=== PATIENT | male | born 1990 | race Caucasian/White ===

== ENCOUNTER 2021-06-20 11:10 | Inpatient (IN) | payer MEDICAID ==
[~2021-06-20] VITALS: Ht 175.3 cm; Wt 73.5 kg
[2021-06-20] VITALS (19 sets, daily range): BP systolic 75–130; BP diastolic 43–85
--- NOTE | 2021-06-20 11:10 | NUR ---
PT BIBRA [address] C/O ALTERED AND ELEVATED HEART RATE 182. ADENOSINE 6 AND 12MG GIVEN BY EMS ACLS SPECIALIST. PT IS AAOX0, NOTED RESPIRATORY DISTRESS, HOOKED TO O2 VIA NB AT 15 LPM AND DIMENSION QUARRY SUPERVISOR, KEPT RESTED AND COMFORTABLE. WILL CONTINUE TO MONITOR.
--- NOTE | 2021-06-20 11:14 | NUR ---
SEEN AND EXAMINED BY .
--- NOTE | 2021-06-20 11:20 | NUR ---
IV LINE ESTABLISHED BLOOD DRAWN AND SENT TO LAB.
[2021-06-20] MEDS ORDERED: ACETAMINOPHEN 650 MG/SUPP.RECT RC ONE ×2 (11:29→11:30)
[2021-06-20] MEDS ORDERED: IV NS 0.9% 1,000 ML BAG IV ONE ×2 (11:30→13:30)
[2021-06-20] MEDS ORDERED: ROCURONIUM BROMIDE 100 MG/10 ML VIAL IV ONE (11:30)
[2021-06-20] MEDS ORDERED: ETOMIDATE 2 MG/ML VIAL IV ONE ×2 (11:30→14:22)
[2021-06-20] MEDS ORDERED: VANCOMYCIN 1 GM in IV D5W 250 ML IV ONE (11:30)
[2021-06-20] MEDS ORDERED: MEROPENEM 1 G in IV NS 0.9% 100 ML IV ONE (11:30)
--- NOTE | 2021-06-20 11:32 | NUR ---
COOLING MEASURES PROVIDED.
[2021-06-20 11:37] LABS: BASOPHILS % (AUTO) 0.2 % (0.0-2.0); EOSINOPHILS % (AUTO) 0.2 % (0.0-6.0); HEMATOCRIT 48 % (39-51); HEMOGLOBIN 16.5 g/dL (13.5-17.5); LYMPHOCYTES # (AUTO) 2.1 K/uL (0.8-4.8); LYMPHOCYTES % (AUTO) 12.9 % (20.0-44.0); MEAN CORPUSCULAR HGB CONC 34 g/dl (31.0-36.0); MEAN CORPUSCULAR VOLUME 89 fL (80-96); MONOCYTES # (AUTO) 0.8 K/uL (0.1-1.30); MONOCYTES % (AUTO) 4.7 % (2.0-12.0); NEUTROPHILS # (AUTO) 13.2 K/uL (1.8-8.9); PLATELET COUNT (AUTO) 491 K/uL (150-450); RED BLOOD CELL COUNT(AUTO) 5.39 MIL/uL (4.5-6.0); WHITE BLOOD COUNT (AUTO) 16.1 K/uL (4.3-11.0)
--- NOTE | 2021-06-20 11:38 | NUR ---
ETOMIDATE 20MG IVP AND CAS 60MG IVP GIVEN PER .
--- NOTE | 2021-06-20 11:38 | NUR ---
MOVE SHEET SUBMITTED
[2021-06-20 11:39] LABS: BILIRUBIN,URINE NEGATIVE (NEGATIVE); COLOR,URINE YELLOW (YELLOW); LEUKOCYTE ESTERASE ,URINE NEGATIVE (NEGATIVE); NITRITE, URINE NEGATIVE (NEGATIVE); PROTEIN,URINE 30 mg/dl (NEGATIVE); UGLUCOSE NEGATIVE (NEGATIVE); UROBILINOGEN,URINE 0.2 EU/dL (0.2)
[2021-06-20] MEDS ORDERED: PROPOFOL 100 ML ONE (11:40)
--- NOTE | 2021-06-20 11:40 | NUR ---
PT INTUBATED BY . ET SIZE 7.5 25 AT THE LIP. POSITIVE COLOR CHANGED.
--- NOTE | 2021-06-20 11:45 | NUR ---
RIDE ASSEMBLY SUPERVISOR AT BEDSIDE FOR XRAY.
--- NOTE | 2021-06-20 11:59 | NUR ---
CALLED FOR ICU BED.
[2021-06-20 12:02] LABS: THYROID STIMULATING HORMONE 2.524 uIU/mL (0.358-3.74)
[2021-06-20 12:17] LABS: RBC,URINE 0-2 /HPF (0-2)
--- NOTE | 2021-06-20 12:17 | NUR ---
covid 19 swab collected and sent to lab.
[2021-06-20 12:21] LABS: BACTERIA,URINE None seen /HPF (None Seen); URINE AMORPHOUS PHOSPHATES Few /HPF (None Seen)
[2021-06-20] MEDS ORDERED: LORAZEPAM INJ 2 MG/ML VIAL ONE ×2 (12:22→12:51)
[2021-06-20] MEDS ORDERED: PROPOFOL 100 ML IV PRN (12:30)
[2021-06-20 12:44] LABS: LYMPHOCYTES % (MANUAL) 1 % (16-48); MONOCYTES % (MANUAL) 4 % (0-11.0); NEUTROPHILS % (MANUAL) 82 (42-76); REACTIVE LYMPHOCYTES 13 % (0-0)
[2021-06-20] MEDS ORDERED: LORAZEPAM INJ 2 MG/ML VIAL IV ONE ×2 (13:00→14:00)
[2021-06-20 13:23] LABS: ALANINE AMINOTRANSFERASE 32 U/L (12-78); ALBUMIN 5.6 g/dL (3.4-5.0); ALKALINE PHOSPHATASE 116 U/L (46-116); ASPARTATE AMINOTRANSFERASE 85 U/L (15-37); BILIRUBIN,DIRECT 0.2 mg/dL (0.0-0.2); BILIRUBIN,TOTAL 0.8 mg/dL (0.2-1.0); CALCIUM, SERUM 10.1 mg/dL (8.5-10.1); CARBON DIOXIDE 17 mmol/L (21-32); CHLORIDE 105 mmol/L (98-107); CREATININE 3.2 mg/dL (0.6-1.3); GLUCOSE 139 mg/dL (74-106); POTASSIUM 5.6 mmol/L (3.5-5.1); SODIUM SERUM 148 mmol/L (136-145); TOTAL PROTEIN, SERUM 9.6 g/dL (6.4-8.2); UREA NITROGEN, BLOOD 22 mg/dL (7-18)
--- NOTE | 2021-06-20 13:31 | NUR ---
CALLED [facility] --- DR PAK IS ON THE PHONE WITH DR RICHARD.
--- NOTE | 2021-06-20 13:53 | NUR ---
REPORT GIVEN TO STEVIE MCCLURE FOR YUNIOR.
--- NOTE | 2021-06-20 14:19 | NUR ---
RN/ICU-ADMITTED THIS 39 Y/O HOMELESS MALE FROM ED BY JONATHON PER ACLS PROTOCOL. ROUTINE ICU ADMISSION CARE INITIATED. NURSING FOCUS:ALTERED RESPIRATORY STATUS R/T DIAGNOSIS:RESPIRATORY FAILURE.PT. MECHANICALLY INTUBATED W/ A #7.5 ETT,AT ABOUT 25CM AT THE LIP. W/ INITIAL SETTINGS:AC-20, VT-450, FIO2-60%, PEEP +5, SATS.-96%. SEDATED ON DIPRIVAN DRIP AT 30 MCG/KG/MIN, WILL TITRATE PER PROTOCOL.FEBRILE 101/F AXILLARY,CONTINUOUS COOLING MEASURES DONE. PT. IS A FULL CODE. W/ MULTI SKIN ISSUES NOTED. WILL CONSULT TRACTOR ENGINE MECHANIC.
[2021-06-20] MEDS: PROPOFOL 100 ML IV PRN ×2 (14:20→16:12)
[2021-06-20] MEDS ORDERED: ROCURONIUM BROMIDE 50 MG/5 ML IV ONE (14:22)
[2021-06-20 14:53] LABS: ABG BASE EXCESS -8.3 mmol/L; ABG OXYGEN SATURATION 98.9 % (92.0-98.5); ABG PCO2 31.9 mmHg (35.0-45.0); ABG PH 7.328 (7.350-7.450); ABG PO2 288.4 mmHg (75.0-100.0); AaDO2 392.7 mmHg; COHb 0.3 % (0.5-1.5); MetHb 0.9 % (0.0-1.5); O2Hb 97.7 % (94.0-97.0); PEEP,BG 5 cm H2O; SITE, ABG Right Radial; VT, ABG 450 mL
--- NOTE | 2021-06-20 15:31 | NUR ---
RN/NAZ- KETAN FROM XRAY DEPT JUST CALLED, TO FOLLOW UP ON LP PROCEDURE LATOSHA. IN RADIOLOGY, MADE AWARE, THAT PT. IS INTUBATED, HOMELESS, NO FAMILY. WILL NOTIFY PRIMARY MD REGARDING THE CONSENT.
[2021-06-20] MEDS: IV NS 0.9% 1,000 ML IV PRN (15:44)
[2021-06-20] MEDS ORDERED: MAG HYDROX/AL HYDROX/SIMETH 30 ML UDC PO PRN (16:00)
[2021-06-20] MEDS ORDERED: MAGNESIUM HYDROXIDE 30 ML UDC PO PRN (16:00)
[2021-06-20 17:18] LABS: CREATINE KINASE, TOTAL 12015 U/L (39-308); TRIGLYCERIDES 87 mg/dL (30-150)
--- NOTE | 2021-06-20 17:26 | NUR ---
PT. 39 Y OLD MALE REC. IN ER BED #8 X3 RT AT THE BEDSIDE. PT. ORALLY INTUBATED AT [address] RICHARD FOR INTUBATION ETT # 7.0 25 CM LIP LINE GOOD COLOR EXCHANGED VIA CAPNOGRAPHY B/S BILATERALLY RALES AND SUCTIONED FOR MINIMAL AMT WHITE/YELLOW SECRETIONS, ALARMS ARE SET AND FUNCTIONAL, EQUAL CHEST RISE NOTED. AMBU BAG AT THE BEDSIDE, VENT PLUGGED INTO RED OUTLET. T/O DAY PT. TOOK TO CT AND BACK TO ER SAFELY, THAN TRANSFERRED TO ICU T/O DAY ROOM 259. PT. REMAIN ON VENT AND REPORT WILL PASS TO PM SHIFT. Addendum: 06/20/21 at 1733 by ROSA COOMBS RT Amended: Links added.
[2021-06-20] MEDS: PIPERACILLIN /TAZOBACTAM 3.375 G in IV D5W 50 ML IV SCH (17:46)
--- NOTE | 2021-06-20 17:50 | NUR ---
RN/ICU-TROPONIN RESULT IN 35.122, RELAYED TO DR. PAK BY PHONE W/ RBTO TO CANCEL LP LATOSHA. AND START PT. ON HEPARIN DRIP ACS PROTOCOL.
[2021-06-20] MEDS ORDERED: HEPARIN INFUSION/D5W 500 ML IV PRN (18:00)
[2021-06-20] MEDS ORDERED: HEPARIN SODIUM, PORCINE 5000 UNITS/1 ML VIAL IV ONE (18:30)
--- NOTE | 2021-06-20 19:15 | NUR ---
RN/ICU-HEPARIN DRIP STARTED AT 1110 UNITS/HR PER ACS PROTOCOL. WILL CHECK PTT IN 6HRS (0100)PER PROTOCOL.
--- NOTE | 2021-06-20 20:00 | NUR ---
RN/ICU-HIGHLY FEBRILE. T-102.8/F, WILL MEDICATE W/ TYLENOL 650MG/NGT POST NGT INSERTION PER MD ORDER. WILL CONTINUE COOLING MEASURES.WILL REASSESS FOR PRN EFFECTIVENESS.
[2021-06-20] MEDS: ACETAMINOPHEN 325 MG TABLET PO PRN (20:44)
--- NOTE | 2021-06-20 21:00 | NUR ---
RN/ICU- TEMPT. RE CHECKED-102/F, CONTINUOUS COOLING MEASURES DONE
[2021-06-21] VITALS (45 sets, daily range): BP systolic 63–118; BP diastolic 42–75
--- NOTE | 2021-06-21 | NUR ---
RN/ICU-LATEST TEMPT-100/F, CONTINUOUS COOLING MEASURES DONE.
[2021-06-21] MEDS: PIPERACILLIN /TAZOBACTAM 3.375 G in IV D5W 50 ML IV SCH ×3 (00:25→11:08)
[2021-06-21] MEDS: PROPOFOL 100 ML IV PRN ×3 (02:02→20:31)
[2021-06-21] MEDS: IV NS 0.9% 1,000 ML IV PRN (02:18)
--- NOTE | 2021-06-21 03:00 | NUR ---
RN/ICU-RESULT OF PTT IN >170, HEPARIN DRIP PLACED ON HOLD, ACNP LYUDMILA NOTIFIED W/ RBTO TO FOLLOW PROTOCOL AND DO STAT INR/PTT
[2021-06-21 04:01] LABS: HEMATOCRIT 46 % (39-51); HEMOGLOBIN 15.6 g/dL (13.5-17.5); LYMPHOCYTES # (AUTO) 0.8 K/uL (0.8-4.8); LYMPHOCYTES % (AUTO) 6.3 % (20.0-44.0); MEAN CORPUSCULAR HGB CONC 34 g/dl (31.0-36.0); MEAN CORPUSCULAR VOLUME 91 fL (80-96); MONOCYTES # (AUTO) 0.6 K/uL (0.1-1.30); MONOCYTES % (AUTO) 4.9 % (2.0-12.0); NEUTROPHILS # (AUTO) 11.4 K/uL (1.8-8.9); NEUTROPHILS % (AUTO) 88.8 % (43.0-81.0); RED BLOOD CELL COUNT(AUTO) 5.12 MIL/uL (4.5-6.0); WHITE BLOOD COUNT (AUTO) 12.9 K/uL (4.3-11.0)
[2021-06-21 04:15] LABS: CALCIUM, SERUM 7.2 mg/dL (8.5-10.1); CREATININE 3.9 mg/dL (0.6-1.3); MAGNESIUM 2.1 mg/dL (1.8-2.4); PHOSPHORUS 2.6 mg/dL (2.5-4.9); POTASSIUM 3.8 mmol/L (3.5-5.1)
--- NOTE | 2021-06-21 06:00 | NUR ---
RN/ICU- RESULT OF PTT AND PLATELET CT. IN RELAYED TO SAMP LYUDMILA BY PHONE, WILL ORDER ANOTHER STAT PTT/PLATELET.
[2021-06-21 06:04] LABS: PLATELET COUNT (AUTO) 41 K/uL (150-450)
[2021-06-21] MEDS ORDERED: PHYTONADIONE INJ 10 MG/1 ML AMPUL SQ SCH (07:00)
--- NOTE | 2021-06-21 07:30 | NUR ---
TRANSITION MGR NOTE SHIFT ASSESSMENT COMPLETED. PT INTUBATED ON THE VENT AC MODE, FIO2 60%, SAT 100%, VSS, PT SEDATED WITH PROPOFOL AT 20MCG / HR. NG TUBE CLAMPED. NO FEVER. RIGHT PERIPHERAL IV BLEEDING. REYNOSO CATHETER IN PLACED WITH DARK MINIMAL OUTPUT. REDNESS ON SACRUM AND FOAM APPLIED. LATERAL FEET WOUND COVERED WITH DRESSING. HEPARIN DRIP DC. LABS REVIEWED AND MD NOTIFIED. SUCTION PROVIDED NEEDED. BLOODY SECRETION NOTED. REPOSITIONED PT PER PROTOCOL.
[2021-06-21 07:47] LABS: ABG BASE EXCESS -12.6 mmol/L; ABG OXYGEN SATURATION 99.1 % (92.0-98.5); ABG PCO2 30.4 mmHg (35.0-45.0); ABG PH 7.251 (7.350-7.450); ABG PO2 191.5 mmHg (75.0-100.0); AaDO2 202.9 mmHg; COHb 0.2 % (0.5-1.5); MetHb 0.5 % (0.0-1.5); O2Hb 98.4 % (94.0-97.0); SITE, ABG Right Radial
--- NOTE | 2021-06-21 07:48 | NUR ---
RT PATIENT REC'D ORALLY INTUBATED ON [facility] VENT WITH ORDERED SETTINGS EMMA WELL. ETT SECURE AND IN PROPER POSITION. AIRWAY SUCTIONED AND PATENT. PATIENT APPEARS COMFORTABLE AT THIS TIME. VENT ALARMS CHECKED + AUDIBLE. PABLOU BAG AT [facility]. Addendum: 06/21/21 at 1742 by SISSY ARRIAGA RT Amended: Links added.
[2021-06-21 07:55] LABS: D-DIMER 34.56 mg/L(FEU (0.17-0.50)
--- NOTE | 2021-06-21 09:13 | NUR ---
WOUND CARE CONSULT: REVIEWED CHART, NURSING DOCUMENTATION AND PHOTOS WHICH INDICATE INTACT DEEP TISSUE INJURY TO SACRUM/BUTTOCKS AREA AND FOOT WOUNDS, PRESENT ON ADMISSION. RECOMMEND DPM CONSULT. DR JOHANSEN NOTIFIED OF CONSULT REQUEST. RECOMMENDATIONS MADE FOR SKIN PROTECTION. DISCUSSED WITH NURSING STAFF. CURRENT ISA SCORE IS 13. MD IN AGREEMENT WITH PLAN OF CARE.
[2021-06-21] MEDS: IV NS 0.9% 1,000 ML IV SCH ×3 (09:50→17:10)
--- NOTE | 2021-06-21 10:00 | NUR ---
MINES INSPECTOR NOTE PICC INSERTED ON RIGHT UPPER ARM. XRAY ORDERED TO CONFIRM THE PLACEMENT. OK TO USE.
[2021-06-21 10:07] LABS: BAND % (MANUAL) 1 % (0.0-5.0); LYMPHOCYTES % (MANUAL) 5 % (16-48); MONOCYTES % (MANUAL) 2 % (0-11.0); NEUTROPHILS % (MANUAL) 92 (42-76)
[2021-06-21] MEDS: VANCOMYCIN 1 GM in IV D5W 250 ML IV SCH (11:08)
--- NOTE | 2021-06-21 11:50 | NUR ---
NEONATAL DOCTOR NOTE SEDATION VACATION PROVIDED. PT OPENED HIS EYE AND FOLLOWED COMMANDS. LITTLE AGITATED. HEART RATE AND RESPIRATION INCREASED. PT BACK ON PROPOFOL. TROP LEVEL 99.1. MD BOSTON NOTIFIED. DPM SEE PATIENT AND ORDER RECEIVED. CONTINUE MONITORING .
--- NOTE | 2021-06-21 12:10 | NUR ---
SS consult for homelessness, responsible democrat received. Per charge nurse, modesto the pt. is not interviewable at this time as he is sedated and on vent at the moment. SW will follow up as needed.
[2021-06-21] MEDS: MINERAL OIL/PETROLATUM,WHITE 120 GM JAR TP PRN (15:30)
[2021-06-21] MEDS: Z GUARD REMEDY 2 OZ OINT TP PRN (15:32)
[2021-06-21] MEDS: CEFEPIME 2 GM in IV D5W 100 ML IV SCH (17:14)
[2021-06-21] MEDS: METRONIDAZOLE 500MG/ NS 100ML 500 MG in PREMIX 1 EA IV SCH ×2 (17:14→23:48)
--- NOTE | 2021-06-21 18:00 | NUR ---
PSYCHOPAEDIC NURSE NOTED PM CARE PROVIDED. WOUND DRESSING APPLIED PER ODER. DUE MEDICATION GIVEN PER ORDER. PT MORE AGITATED AND HEART RATE TACHY. INCREASED PROPOFOL RATE. WILL KEEP MONITORING.
--- NOTE | 2021-06-21 19:05 | NUR ---
RECEIVED PT ON BED SEDATED, ON ETT 7.04/18 SETTING MD ORDER FIO2 40% SPO2 99% NO SIGN OF RESPIRATORY DISTRESS, BEDSIDE MONITOR READS SINUS TACHY 100'S, HAVE FERNANDA PICC WITH ONGOING PROPOFOL 35 MCG/KG/MIN AND NS @ 250ML/HR INFUSING WELL, HAVE BILATERAL WRIST RESTRAINTS CIRCULATION WILL BE CHECKED REGULARLY, HAVE REYNOSO CATHETER WITH MINIMAL MAKI URINE OUTPUT, BED ON LOWEST POSITION AND LOCKED SIDE RAILS UP X2 WILL CONT TO MONITOR
[2021-06-21] MEDS: Sodium Bicarbonate 50 MEQ in IV D5W 1,000 ML IV PRN (20:31)
[2021-06-22] VITALS (58 sets, daily range): BP systolic 103–133; BP diastolic 30–82
--- NOTE | 2021-06-22 01:37 | NUR ---
PT ON BED STILL SEDATED ON ETT/VENT SETTING PER MD FIO2 40% NO SIGN OF ANY DISTRESS, STILL ON BILATERAL WRIST SOFT RESTRAINTS CIRCULATION CHECKED REGULARLY WILL CONT TO MONITOR
[2021-06-22] MEDS ORDERED: SODIUM BICARBONATE SYR 50 MEQ/50 ML DISP.SYRIN ONE (02:45)
[2021-06-22] MEDS: PROPOFOL 100 ML IV PRN ×3 (03:10→20:31)
[2021-06-22] MEDS: Sodium Bicarbonate 50 MEQ in IV D5W 1,000 ML IV PRN (03:30)
[2021-06-22] MEDS: METRONIDAZOLE 500MG/ NS 100ML 500 MG in PREMIX 1 EA IV SCH ×3 (04:08→21:10)
[2021-06-22 04:42] LABS: BASOPHILS % (AUTO) 0.2 % (0.0-2.0); HEMATOCRIT 38 % (39-51); HEMOGLOBIN 13.3 g/dL (13.5-17.5); LYMPHOCYTES # (AUTO) 0.8 K/uL (0.8-4.8); LYMPHOCYTES % (AUTO) 5.3 % (20.0-44.0); MEAN CORPUSCULAR HGB CONC 35 g/dl (31.0-36.0); MEAN CORPUSCULAR VOLUME 88 fL (80-96); MONOCYTES # (AUTO) 0.6 K/uL (0.1-1.30); MONOCYTES % (AUTO) 3.9 % (2.0-12.0); NEUTROPHILS # (AUTO) 14.4 K/uL (1.8-8.9); NEUTROPHILS % (AUTO) 90.6 % (43.0-81.0); RED BLOOD CELL COUNT(AUTO) 4.33 MIL/uL (4.5-6.0); WHITE BLOOD COUNT (AUTO) 15.9 K/uL (4.3-11.0)
[2021-06-22 04:50] LABS: CALCIUM, SERUM 6.1 mg/dL (8.5-10.1); CREATININE 7.3 mg/dL (0.6-1.3); PLATELET COUNT (AUTO) 34 K/uL (150-450); POTASSIUM 4.2 mmol/L (3.5-5.1)
[2021-06-22 05:28] LABS: BAND % (MANUAL) 6 % (0.0-5.0); NEUTROPHILS % (MANUAL) 86 (42-76)
[2021-06-22 05:29] LABS: LYMPHOCYTES % (MANUAL) 5 % (16-48); MONOCYTES % (MANUAL) 2 % (0-11.0)
[2021-06-22 05:48] LABS: D-DIMER 35.08 mg/L(FEU (0.17-0.50)
--- NOTE | 2021-06-22 06:50 | NUR ---
PT ON BED STILL SEDATED, ON ETT/VENT SETTING PER MD FIO2 40% SPO2 100% NO SIGN OF RESPIRATORY DISTRESS NOTED, BEDSIDE MONITOR READS SINUS RHYTHM 90'S BED, STILL ON PROPOFOL 30 MCG/KG/MIN AND NaHCO3 + 1000ML D5W @ 150 ML/HR VIA FERNANDA PICC LINE INFUSING WELL, REYNOSO CATHETER DRAINING VERY MINIMAL DARK YELLOW URINE @ 70ML FOR 12HRS, STILL ON BILATERAL WRIST SOFT RESTRAINTS CIRCULATION WAS CHECKED, BED ON LOWEST POSITION AND LOCKED SIDE RAILS UP X2 WILL ENDORSED TO AM SHIFT NURSE
--- NOTE | 2021-06-22 07:40 | NUR ---
ICU/RN PT IS INTUBATED ON THE VENT ,AC MODE,FIO2-40%.SAT O2-100%.SEDATED ON DIPRIVAN.V/S STABLE,AFEBRILE.NO PAIN REPORTED AT THIS TIME.NPO.NG TUBE CLAMPED.RIGHT UPPER ARM PICC LINE,ON BICARB DRIP.F/C DRAINING WITH MINIMAL AMOUNT MUDDY DARK URINE. SUCTION PROVIDED.LABS REVIEW.MD AWARE.BILATERAL HEELS WOUNDS COVERED WITH DRESSING
[2021-06-22 08:57] LABS: ABG BASE EXCESS -11.5 mmol/L; ABG OXYGEN SATURATION 98.9 % (92.0-98.5); ABG PCO2 28.8 mmHg (35.0-45.0); ABG PO2 162.1 mmHg (75.0-100.0); COHb 0.3 % (0.5-1.5); MetHb 0.3 % (0.0-1.5); O2Hb 98.3 % (94.0-97.0); SITE, ABG Left Radial; VENT MODE, BG AC 20 450 40%
--- NOTE | 2021-06-22 09:00 | NUR ---
ICU/RN DUE MEDS ARE GIVEN ORDERED.
[2021-06-22] MEDS ORDERED: ACETAMINOPHEN 325 MG TABLET PO ONE (10:00)
[2021-06-22] MEDS ORDERED: diphenhydrAMINE HCL 50 MG/ML VIAL IV ONE ×2 (10:00→15:00)
[2021-06-22 10:07] LABS: *ANA ANTI-CENTROMERE B AB <0.2 AI (0.0-0.9); *ANA ANTI-DNA(DS) AB, QN <1 IU/mL (0-9); *ANA ANTI-JO-1 <0.2 AI (0.0-0.9); *ANA ANTICHROMATIN ANTIBODY <0.2 AI (0.0-0.9); *ANA RNP ANTIBODIES <0.2 AI (0.0-0.9); *ANA SJOGREN'S ANTI-SS-A <0.2 AI (0.0-0.9); *ANA SJOGREN'S ANTI-SS-B <0.2 AI (0.0-0.9); *ANAANTI-SCLERODERMA-70 AB <0.2 AI (0.0-0.9); *ANASMITH AB <0.2 AI (0.0-0.9)
[2021-06-22 10:31] LABS: ALBUMIN 2.5 g/dL (3.4-5.0)
--- NOTE | 2021-06-22 10:34 | NUR ---
SS Note: SW spoke to the maintenance shop technician to determine if the pt. has any belonging that may be able to help identify this pt. However, tech stated that the pt.'s only belognigns are : Belt, pants and shoes. No identifiication was found. SW still unable to identify pt. at this time. SW will follow up as needed and interview pt. when they are no longer sedated.
[2021-06-22] MEDS: Sodium Bicarbonate 50 MEQ in IV D5W 1,000 ML IV SCH ×2 (11:53→18:36)
[2021-06-22] MEDS: VANCOMYCIN 1 GM in IV D5W 250 ML IV SCH (12:00)
[2021-06-22] MEDS: NEPRO 1,000 ML BOTTLE GT PRN (12:06)
[2021-06-22 13:34] LABS: ALBUMIN 1.8 g/dL (3.4-5.0); BILIRUBIN,DIRECT 1.2 mg/dL (0.0-0.2); BILIRUBIN,TOTAL 2.1 mg/dL (0.2-1.0); TOTAL PROTEIN, SERUM 3.5 g/dL (6.4-8.2)
[2021-06-22] MEDS ORDERED: VANCOMYCIN 500 MG in IV D5W 100 ML IV PRN (14:30)
[2021-06-22] MEDS ORDERED: PHYTONADIONE INJ 10 MG/1 ML AMPUL SQ ONE (15:00)
[2021-06-22] MEDS: CEFEPIME 2 GM in IV D5W 100 ML IV SCH (15:03)
--- NOTE | 2021-06-22 18:00 | NUR ---
ICU/RN HEW HD CATH PLACED ORDERED. 2 UNITS OF CRYOPRECIPITATE IV GIVEN ORDERED.T-99.2 DUE MEDS ARE GIVEN .PM CARE PROVIDED.WOUND DRESSING DONE ORDERED.REPOSITION FOR COMFORT.CONTINUE MONITORING.
--- NOTE | 2021-06-22 19:56 | NUR ---
TRANSFUSION OF FFP STARTED WITH DIALYSIS, V/S CHECKED AND RECORDED NO BLOOD TRANSFUSION REACTION NOTED
--- NOTE | 2021-06-22 20:12 | NUR ---
2ND UNIT OF FFP GIVEN TO DIALYSIS NURSE TO TRANSFUSED, TRANSFUSION VERIFICATION DONE WITH OTHER NURSE, V/S CHECKED AND RECORDED, WILL CONT TO MONITOR
--- NOTE | 2021-06-22 20:20 | NUR ---
Received patient intubated 7.5 ett secured at 25cm at the lip. No sob noted. Patient tolerating vent settings. Sx'd small amt of white secretions. Vent alarms set and audible. Ett secured, cuff checked. Continue to monitor. Addendum: 06/22/21 at 2021 by CHACE MACKAY RT Amended: Links added.
--- NOTE | 2021-06-22 20:55 | NUR ---
VANCO DOSE PRN HD NON ADMIN VANCO TROUGH 21 CONFIRM IT TO PHARMACIST SHERON
[2021-06-22] MEDS ORDERED: VANCOMYCIN 0.75 GM in IV D5W 250 ML IV SCH (21:00)
--- NOTE | 2021-06-22 21:10 | NUR ---
PT COMPLETED HD WITH 1L OUT, TOLERATING WELL, V/S CHECKED AND RECORDED, PT STILL SEDATED ON ETT/VENT SETTING PER MD WILL CONT TO MONITOR
[2021-06-23] VITALS (38 sets, daily range): BP systolic 123–138; BP diastolic 62–85
[2021-06-23] MEDS: Sodium Bicarbonate 50 MEQ in IV D5W 1,000 ML IV SCH (01:03)
--- NOTE | 2021-06-23 03:10 | NUR ---
PT ON BED SEDATED, STILL ON ETT/VENT SETTING ORDER FIO2 40% SPO2 99% NO SIGN OF RESPIRATORY DISTRESS STILL ON SINUS RHYTHM ON BEDSIDE MONITOR CURRENTLY ON PROPOFOL 15 MCG/KG/MIN AND NaHCO3 50 MEQ+D5W 1L INFUSING WELL FERNANDA PICC, BED ON LOWEST POSITION AND LOCKED SIDE RAILS UP X2 WILL CONT TO MONITOR
[2021-06-23] MEDS: METRONIDAZOLE 500MG/ NS 100ML 500 MG in PREMIX 1 EA IV SCH ×3 (04:18→20:31)
[2021-06-23] MEDS: Z GUARD REMEDY 2 OZ OINT TP PRN (04:19)
[2021-06-23] MEDS: MINERAL OIL/PETROLATUM,WHITE 120 GM JAR TP PRN (04:20)
[2021-06-23 05:28] LABS: BASOPHILS % (AUTO) 0.3 % (0.0-2.0); HEMATOCRIT 33 % (39-51); HEMOGLOBIN 11.8 g/dL (13.5-17.5); LYMPHOCYTES # (AUTO) 0.7 K/uL (0.8-4.8); LYMPHOCYTES % (AUTO) 7.2 % (20.0-44.0); MEAN CORPUSCULAR HGB CONC 36 g/dl (31.0-36.0); MEAN CORPUSCULAR VOLUME 86 fL (80-96); MONOCYTES # (AUTO) 0.4 K/uL (0.1-1.30); MONOCYTES % (AUTO) 4.4 % (2.0-12.0); NEUTROPHILS # (AUTO) 8.6 K/uL (1.8-8.9); NEUTROPHILS % (AUTO) 88.1 % (43.0-81.0); RED BLOOD CELL COUNT(AUTO) 3.81 MIL/uL (4.5-6.0); WHITE BLOOD COUNT (AUTO) 9.8 K/uL (4.3-11.0)
[2021-06-23 05:30] LABS: CALCIUM, SERUM 6.4 mg/dL (8.5-10.1); CREATININE 6.9 mg/dL (0.6-1.3)
[2021-06-23 05:34] LABS: PLATELET COUNT (AUTO) 27 K/uL (150-450)
[2021-06-23 05:41] LABS: POTASSIUM 2.6 mmol/L (3.5-5.1)
--- NOTE | 2021-06-23 06:00 | NUR ---
REPORTED TO JITENDRA CRITICAL VALUE OF PLATELET 27 AND K+2.6 WITH ORDERS MADE AND CARRIED OUT
[2021-06-23 06:06] LABS: BAND % (MANUAL) 26 % (0.0-5.0); BASOPHILS % (MANUAL) 0 % (0.0-2.0); EOSINOPHILS % (MANUAL) 0 % (0-4); LYMPHOCYTES % (MANUAL) 5 % (16-48); METAMYELOCYTES % 5 % (0-0); MONOCYTES % (MANUAL) 4 % (0-11.0); NEUTROPHILS % (MANUAL) 60 (42-76)
[2021-06-23] MEDS: POTASSIUM CL. PREMIX PERIPHER. 50 ML IV SCH ×2 (06:29→07:31)
[2021-06-23] MEDS: IV LR 1000 ML 1,000 ML IV PRN ×2 (07:31→20:30)
[2021-06-23] MEDS: POTASSIUM CHLORIDE 20 MEQ POWDER PACKET GT SCH (08:18)
[2021-06-23] MEDS: ONDANSETRON HCL/PF 4 MG/2 ML VIAL IVP PRN ×2 (09:06→16:18)
--- NOTE | 2021-06-23 09:15 | NUR ---
REPORTED TO DR. BOSTON THE CK MB 71.4 WITH NO NEW ORDER
--- NOTE | 2021-06-23 09:30 | NUR ---
PROPOFOL OFF @ 0830 FOR SEDATION VACATION, THIS TIME PT IS OPENING HIS EYES BUT NOT TRACKING OR FOLLOWING ANY COMMANDS NO RESPITAORY DISTRESS NOTED, SEEN BY DR. MORRELL WITH ORDER TO HOLD SEDATION FOR NOW, NOTED AND CARRIED OUT WILL CONT TO MONITOR
[2021-06-23 10:20] LABS: D-DIMER 13.36 mg/L(FEU (0.17-0.50)
--- NOTE | 2021-06-23 11:00 | NUR ---
RESTARTED PROPOFOL TITRATE PER PROTOCOL BECAUSE PT BECOME AGITATED AND TRYING TO REMOVED HIS ETT AND BECOME TACHYPNIEC, PT IS ABLE TO KOVE HANDS AND FEET BUT CANNOT SQUISH HAND RIGHT UPPER AND LOWER EXTREMITIES MORE STRONG THAT LEFT EXTREMITIES, INFORM HOPSITALIST AND PULMO ABOUT THE RESTART OF SEDATION CHARGE NURSE ALSO AWARE
[2021-06-23] MEDS: PROPOFOL 100 ML IV PRN ×2 (11:01→18:12)
[2021-06-23 11:12] LABS: ALBUMIN 2.4 g/dL (3.4-5.0); BILIRUBIN,TOTAL 5.9 mg/dL (0.2-1.0); CALCIUM, SERUM 6.3 mg/dL (8.5-10.1); CREATININE 6.9 mg/dL (0.6-1.3); TOTAL PROTEIN, SERUM 4.5 g/dL (6.4-8.2)
[2021-06-23 11:42] LABS: POTASSIUM 2.6 mmol/L (3.5-5.1)
--- NOTE | 2021-06-23 14:45 | NUR ---
RN/ICU-RECEIVED PT.FROM [facility] KELSEA RUIZ. PT. INTUBATED ON AC MODE, FIO2 -40%. SATS.-100%. ON DIPRIVAN DRIP AT 20MCG/KG/MIN. W/ SAS OF 3.NO BROWER. WITH RODRIGO. SOFT WRIST RESTRAINTS ON PER PROTOCOL. EKG SR BP WNL. AFEBRILE. NO S/S OF PAIN OR DISTRESS.
--- NOTE | 2021-06-23 15:15 | NUR ---
RN/ICU-COUNTER DISH CARRIER EDDIE JUST CALLED, GETTING AN UPDATE ON PT, STATUS. PT. REMAINS INTUBATED AND SEDATED W/ DIPRIVAN AT 20 MCG/KG/MIN. WILL CONTINUE TO MONITOR PT. CLOSELY PER PROTOCOL.
--- NOTE | 2021-06-23 15:15 | NUR ---
SS Note : SW called & spoke to the pt.'s nurse, Katalina regarding pt.'s level of consciousness. Katalina stated that the pt. is still intubated and sedated. Pt. cannot be interviewed at this time. SW will continue to follow up as needed. Pt. unable to be identified at this time.
--- NOTE | 2021-06-23 16:10 | NUR ---
RN/ICU- PT. VOMITED MODERATE AMOUNT OF BROWNISH GI CONTENTS. TUBE FEEDS HELD FOR NOW. WILL REFER TO MD HAT LACER FOR ORDERS.WILL MEDICATE W/ ZOFRAN 4MGS SIVP AND WILL REASSESS FOR PRN EFFECTIVENESS.
--- NOTE | 2021-06-23 16:12 | NUR ---
RN/ICU-DR. LISA HERE TO SEE PT. UPDATE GIVEN TO SAME, W/ ORDER, NOTED.
[2021-06-23] MEDS: CEFEPIME 2 GM in IV D5W 100 ML IV SCH (16:19)
--- NOTE | 2021-06-23 18:00 | NUR ---
RN/ICU- SPOKE TO THANH RAMIREZ REGARDING PT. EMESIS AND TUBE FEEDS, W/ RBTO TO HOLD TUBE FEEDS FOR NOW AND START PT. ON REGLAN 5 MG PER GTUBE.
[2021-06-23] MEDS: NEPRO 1,000 ML BOTTLE GT PRN (18:18)
--- NOTE | 2021-06-23 19:00 | NUR ---
RN/ICU- PT. VENT ALARMING, UPON ENTRY TO PT. ROOM, NOTED SELF EXTUBATED, HOLDING UNTO THE ETT SUCTION TUBING., IN SPITE OF RODRIGO. WRIST RESTRAINTS. PT. SATS-93%, VOMITED MODERATE AMOUNT OF BROWNISH GI CONTENTS IMMEDIATELY STARTED BAGGING PT. W/ MASK, NGT HOOKED UP TO LOW INTERMITTENT SUCTION, OBTAINED MODERATE AMOUNT OF SAME BROWNISH GI CONTENTS. RR-30'S, HOB ON HIGH FOWLERS POSITION.RT NOTIFIED LAUREN. WILL CALL Nallely CEBALLOS DNP
--- NOTE | 2021-06-23 19:15 | NUR ---
rt note patient self extubated. placed on nrb. ER md called to room to reintubate. MD ordered ABG and chest xray. patient not fully awake at this time. HR and Sats stable. will continue to monitor. band straightenerSTEVIE beltran.
--- NOTE | 2021-06-23 19:30 | NUR ---
RN/ICU-DR. RESENDIZ HERE TO ASSESS AND INTUBATE PT. SAME MD AFTER ASSESSING PT. TO HOLD OFF INTUBATION FOR NOW AND DO A STAT ABG AND CXR.
--- NOTE | 2021-06-23 19:35 | NUR ---
RN OPENING NOTES: RECEIVED PT S/P SELF EXTUBATION RESTING IN BED. PATIENT IN NO S/SX OF ACUTE DISTRESS AT THIS TIME. NO SOB NOTED. PATIENT'S BREATHING IS EVEN AND UNLABORED. PATIENT IS ON 15L OF OXYGEN VIA NON REBREATHER MASK; TOLERATING WELL. PATIENT ON TELE MONITORING READING SINUS RHYTHM HR IS @70s AT THE TIME OF RECEIVED. PATIENT CURRENTLY ON NPO; WITH NGT ON L NARE; PLACEMENT VERIFIED VIA AUSCULTATION AND VIA CXR; CONNECTED ON LOW INTERMITTENT SUCTION WITH SMALL AMOUNT OF OUTPUT BROWN IN COLOR. NOTED IV SITE ON L AC#18 AND R UA PICC LINE; BOTH PATENT, INTACT AND FLUSHING WELL; NO S/S OF INFECTION OR INFILTRATION. WITH IV FLUID RUNNING ORDERED. PT ALSO HAS R IJ HD CATH SECURED AND INTACT NO SIGNS OF INFECTION. REYNOSO CATH IN PLACE, SMALL AMOUNT OF URINE OUTPUT NOTED. WITH BILATERAL SOFT RESTRAINTS IN PLACED, MONITORED AND ASSESSED PER PROTOCOL. SAFETY MEASURES HAVE BEEN PROVIDED AND IMPLEMENTED. PATIENT BED ALARM IS ON. HEAD OF BED ELEVATED. BED IS LOCKED, IN LOWEST POSITION AND SIDE RAILS UP. CALL LIGHT WITHIN REACH OF THE PATIENT. APPLICABLE ISOLATION PRECAUTIONS IN PLACE. WILL CONTINUE TO MONITOR AND REASSESS FOR ANY CHANGES AND WILL CARRY OUT ANY ONGOING AND ACTIVE MD ORDER.
[2021-06-23 19:43] LABS: ABG BASE EXCESS -1.5 mmol/L; ABG OXYGEN SATURATION 99.1 % (92.0-98.5); ABG PCO2 29.5 mmHg (35.0-45.0); ABG PH 7.473 (7.350-7.450); ABG PO2 286.4 mmHg (75.0-100.0); AaDO2 397.1 mmHg; COHb 0.3 % (0.5-1.5); MetHb 0.4 % (0.0-1.5); O2Hb 98.4 % (94.0-97.0); SITE, ABG Left Radial; VENT MODE, BG non rebreather
--- NOTE | 2021-06-23 20:00 | NUR ---
RN NOTES CALLED RADIOLOGY DEPT ([phone]); S/W ALESHA, FOLLOWED UP WITH CXR RESULT. SHE SAID THEY JUST RECEIVED AND AND CURRENTLY PROCESSING IT. AWAITING RESULT; ONCE OBTAINED WILL FORWARD TO ER . TARGETEER MADE AWARE.
[2021-06-23] MEDS: METOCLOPRAMIDE HCL 10 MG/10 ML UDC GT SCH (21:23)
--- NOTE | 2021-06-23 23:55 | NUR ---
RN NOTES HD RN (BENITA) COORDINATED REGARDING HD END SESSION; TOTAL HD OUTPUT: 2L. WILL CONTINUE TO ASSESS AND MONITOR POST HD SESSION.
[2021-06-24] VITALS (36 sets, daily range): BP systolic 107–142; BP diastolic 58–80
--- NOTE | 2021-06-24 04:00 | NUR ---
RN NOTES NO NOTED CHANGES IN PATIENT CONDITION AT THIS TIME; PATIENT VITALS STABLE, NO SIGNS OF ACUTE RESPIRATORY DISTRESS. AM PATIENT CARE RENDERED. LOOK OUT TOWER FIRE WATCHER MADE AWARE. WILL CONTINUE TO MONITOR AND REASSESS FOR ANY CHANGES THROUGHOUT THE SHIFT.
[2021-06-24] MEDS: METRONIDAZOLE 500MG/ NS 100ML 500 MG in PREMIX 1 EA IV SCH ×3 (04:02→21:42)
[2021-06-24 04:29] LABS: BASOPHILS % (AUTO) 0.1 % (0.0-2.0); HEMATOCRIT 34 % (39-51); HEMOGLOBIN 12.2 g/dL (13.5-17.5); LYMPHOCYTES # (AUTO) 0.5 K/uL (0.8-4.8); LYMPHOCYTES % (AUTO) 4.1 % (20.0-44.0); MEAN CORPUSCULAR HGB CONC 36 g/dl (31.0-36.0); MEAN CORPUSCULAR VOLUME 87 fL (80-96); MONOCYTES # (AUTO) 0.7 K/uL (0.1-1.30); MONOCYTES % (AUTO) 5.5 % (2.0-12.0); NEUTROPHILS # (AUTO) 11.6 K/uL (1.8-8.9); NEUTROPHILS % (AUTO) 90.3 % (43.0-81.0); RED BLOOD CELL COUNT(AUTO) 3.92 MIL/uL (4.5-6.0); WHITE BLOOD COUNT (AUTO) 12.9 K/uL (4.3-11.0)
[2021-06-24 04:41] LABS: PLATELET COUNT (AUTO) 39 K/uL (150-450)
[2021-06-24 04:51] LABS: CALCIUM, SERUM 7.6 mg/dL (8.5-10.1); CARBON DIOXIDE 24 mmol/L (21-32); CHLORIDE 108 mmol/L (98-107); CREATININE 7.3 mg/dL (0.6-1.3); GLUCOSE 99 mg/dL (74-106); POTASSIUM 3.9 mmol/L (3.5-5.1); SODIUM SERUM 148 mmol/L (136-145); UREA NITROGEN, BLOOD 50 mg/dL (7-18)
[2021-06-24 04:59] LABS: D-DIMER 8.16 mg/L(FEU (0.17-0.50)
--- NOTE | 2021-06-24 05:39 | NUR ---
RN NOTES RECEIVED CALL FROM LAB; INFORMED ABOUT CRITICAL LAB: LACTIC ACID 3.9 AND PLATELET @39L. WILL INFORM SHANTELLE CROWLEY. FOOD AND BEVERAGE CHECKER MADE AWARE. SHANTELLE CROWLEY INFORMED REGARDING CRITICAL LAB; NO FURTHER ORDER. FOOD AND BEVERAGE CHECKER MADE AWARE.
[2021-06-24 05:42] LABS: BASOPHILS % (MANUAL) 0 % (0.0-2.0); EOSINOPHILS % (MANUAL) 0 % (0-4); LYMPHOCYTES % (MANUAL) 6 % (16-48); MONOCYTES % (MANUAL) 6 % (0-11.0)
[2021-06-24 05:43] LABS: BAND % (MANUAL) 18 % (0.0-5.0)
[2021-06-24 05:44] LABS: METAMYELOCYTES % 4 % (0-0); NEUTROPHILS % (MANUAL) 66 (42-76)
--- NOTE | 2021-06-24 07:00 | NUR ---
RN CLOSING NOTE: PATIENT REMAINS IN ROOM IN NO SIGNS OF RESPIRATORY DISTRESS, PATIENT STILL ON NON REBREATHER MASK;TOLERATING WELL SATURATING @ >95% SP02. SAFETY MEASURES IMPLEMENTED, BED IN LOWEST POSITION, LOCKED, SIDE RAILS UP, CALL LIGHT WITHIN REACH. ALL NEEDS AND ORDERS ADDRESSED DURING THE SHIFT. IV ACCESS MAINTAINED INTACT, SECURED AND FLUSHING WELL. ALL DUE MEDS GIVEN ORDERED & SCHEDULED ; PATIENT TOLERATED WELL. PATIENT KEPT CLEAN AND COMFORTABLE WITHIN THE SHIFT. PATIENT ENDORSED TO INCOMING SHIFT RN WITH STABLE VITAL SIGN AND FOR CONTINUITY OF CARE.
[2021-06-24 07:43] LABS: BILIRUBIN,DIRECT 7.1 mg/dL (0.0-0.2)
--- NOTE | 2021-06-24 08:00 | NUR ---
sericulture teacher. received the pt rest on the bed. awake, alert. follow commands. lethargic. oxygen 5l via nasal cannula. sat 99%. no acute distress noted. sound person showing nsr. ngt intact. hob eleavted. fc patent. pt is anuric. hob eleavted. will continue to monitor vitals.
[2021-06-24 08:05] LABS: ALBUMIN 2.4 g/dL (3.4-5.0); BILIRUBIN,TOTAL 9.6 mg/dL (0.2-1.0); CALCIUM, SERUM 7.8 mg/dL (8.5-10.1); CREATININE 7.3 mg/dL (0.6-1.3); POTASSIUM 3.9 mmol/L (3.5-5.1); TOTAL PROTEIN, SERUM 4.8 g/dL (6.4-8.2)
[2021-06-24] MEDS ORDERED: IV NS 0.9% 500 ML IV ONE (09:00)
[2021-06-24] MEDS: METOCLOPRAMIDE HCL 10 MG/10 ML UDC GT SCH ×2 (09:00→21:41)
[2021-06-24] MEDS: POTASSIUM CHLORIDE 20 MEQ POWDER PACKET GT SCH (09:01)
--- NOTE | 2021-06-24 10:00 | NUR ---
agricultural commodities grader. pt pulled out ngt.
--- NOTE | 2021-06-24 10:57 | NUR ---
lactic acid is 5.1. notified teresa. new order received. 500ml ns bolus given.
--- NOTE | 2021-06-24 11:15 | NUR ---
ASSUMED CARE OF PATIENT AT THIS TIME. REPORT RECEIVED FROM RODRI HUBBARD
--- NOTE | 2021-06-24 12:30 | NUR ---
"Mop Man consult: environmental field services technician consult requested for homelessness. Patient is a 39-year-old, male. SW met with patient at his bedside in the ICU. Patient was alert and oriented x3. Patient was unaware of the situation which brought him to the hospital. Patient presented drowsy and appeared appropriately groomed. Per chart, patient was brought in by ambulance from the street on 06/20/21 and presented altered. Patient stated that he is currently homeless and stated that he has been homeless for years. Patient stated that he currently has no access to social support and has no contact with friends or family. SW asked patient if he currently has a source of income and patient stated that he has no source of income at this time. Patient denied history of substance use. Patient denied history of mental illness. Patient denied suicidal and homicidal ideation. SW offered the patient homeless resources. Patient accepted the resources and thanked SW. Patient signed the homeless waiver and SW filed the waiver in the patient's chart. SW discussed discharge plans with the patient. Patient stated that he plans to return to his prior living arrangement on the street at this time. PLAN: Patient plans to return to his prior living arrangement on the street at this time. No further SS intervention at this time, however, SW will remain available as needed. RESOURCES: Year-round shelters: [facility] [place] [address] [address] ; [place] [facility] [address] [place] [address]; [place] [id number] [facility] [address] SPA 4 | [facility] [place] Provider: First to Serve Address: [address], [address] # of Beds: 48 Population Served: [facility] Provider: First to Serve Address: [address] [facility], [address] # of Beds: 73 Population Served: [facility] 6 | [facility] Provider: [facility] at Last Address: [address] [facility], [address] # of Beds: 63 Population Served: [facility] 3 | [facility] Provider: [facility] [place] Address: [address] [facility] [place], [address] # of Beds: 75 Population Served: [facility] 8 | [facility] Provider: [place] Address: [address] [facility], [address] # of Beds: 80 Population Served: [facility] 1 | [facility] Provider: [place] Address: [address] [place] [address], [address] # of Beds: 85 Population Served: [facility] 2 | [facility] Provider: [facility] Address: Confidential (please call for location) # of Beds: 52 Population Served: [facility] 4 | [facility] Provider: [facility] Address: [address] [place] [address] # of Beds: 49 Population Served: [facility] Provider: First To Serve Address: [address] [place] [address] # of Beds: 27 Population Served: [facility] Hygiene: [place] [facility]: [address] [facility] ; [place] [facility] [address] [facility] [place] ; [facility] [address] [facility] . Food Resources: [place] [facility] at [facility]- [address] [facility]; Meet Each Need with Dignity ([facility]) [address] [facility]; [facility] [address] [facility]; [facility] [address] [facility]. Mental Health resources provided: [facility] [address] , [place] [address] ; [facility] [address] [facility] [address], [place] [address] ; [place] [facility] [address] [place] [address] ; [facility] [place] [address] Healthcare Clinics: [facility] [address] [facility], [address] [place]. [place] ; [facility] [address] [facility] [address] [place] [address]; [facility] [address] [place] [address] [phone]"
[2021-06-24] MEDS: CEFEPIME 2 GM in IV D5W 100 ML IV SCH (17:45)
--- NOTE | 2021-06-24 18:55 | NUR ---
MILK TANKER DRIVERDIRECTOR DIABETES NOTE RECEIVED REPORT FROM TIA NETWORK ACCOUNT MANAGER. PATIENT A/OX2; SLURRED SPEECH. TOLERATING ROOM AIR WELL AT SPO2 97%. EXTERNAL ASSEMBLER TRACTOR READS NSR AT 72. F/C DRAINING CLEAR YELLOW URINE; PATENT AND INTACT. RIJ HD CATH DRESSING C/D/I. FERNANDA PICCLINE S/L; PATENT AND INTACT. VSS. SAFETY MEASURES IN PLACE: BED IN LOWEST LOCKED POSITION, SIDE RAILS UPX2, CALL LIGHT WITHIN EASY REACH, BED ALARMS ON. PATIENT IN STABLE CONDITION; WILL CONT. PLAN OF CARE.
--- NOTE | 2021-06-24 19:05 | NUR ---
END OF SHIFT NOTE: DIALYSIS ENDED AT 1737, 1.5 L OFF. PT HAD 2 BM'S, FULL BED CHANGE AT 1845. REPORT GIVEN TO HARVINDER RN AT 8120 FOR TRANSFER TO ROOM [facility]-2. PT TRANSFERRED AT 1850, HARVINDER HUBBARD MET BALANCE SCREWHEAD POLISHER IN ROOM. ALL BELONGINGS SENT WITH PATIENT. PT CHECKED ON HOURLY AND PRN BY NURSING STAFF.
[2021-06-25 04:00] VITALS: BP 136/77
[2021-06-25] MEDS: METRONIDAZOLE 500MG/ NS 100ML 500 MG in PREMIX 1 EA IV SCH (05:03)
--- NOTE | 2021-06-25 06:43 | NUR ---
VISUAL MERCHANDISER CLOSING NOTE PATIENT A/OX2;. TOLERATING ROOM AIR WELL AT SPO2 92-95%. EXTERNAL SLICE PLUG CUTTER OPERATOR READS NSR AT 80'S. F/C DRAINING DARK RED HEMATURIA; PATENT AND INTACT. RI J HD CATH DRESSING C/D/I. FERNANDA PICCLINE S/L; PATENT AND INTACT. VSS. SAFETY MEASURES IN PLACE: BED IN LOWEST LOCKED POSITION, SIDE RAILS UPX2, CALL LIGHT WITHIN EASY REACH, BED ALARMS ON. PATIENT IN STABLE CONDITION; WILL ENDORSE PLAN OF CARE TO ONCOMING MORNING RN.
[2021-06-25 07:26] LABS: BASOPHILS % (AUTO) 0.4 % (0.0-2.0); EOSINOPHILS % (AUTO) 0.6 % (0.0-6.0); HEMATOCRIT 31 % (39-51); LYMPHOCYTES # (AUTO) 0.8 K/uL (0.8-4.8); LYMPHOCYTES % (AUTO) 7.1 % (20.0-44.0); MEAN CORPUSCULAR HGB CONC 35 g/dl (31.0-36.0); MEAN CORPUSCULAR VOLUME 88 fL (80-96); MONOCYTES % (AUTO) 8.1 % (2.0-12.0); NEUTROPHILS # (AUTO) 9.9 K/uL (1.8-8.9); NEUTROPHILS % (AUTO) 83.8 % (43.0-81.0); PLATELET COUNT (AUTO) 57 K/uL (150-450); RED BLOOD CELL COUNT(AUTO) 3.59 MIL/uL (4.5-6.0); WHITE BLOOD COUNT (AUTO) 11.8 K/uL (4.3-11.0)
[2021-06-25 07:40] LABS: D-DIMER 4.15 mg/L(FEU (0.17-0.50)
--- NOTE | 2021-06-25 07:45 | NUR ---
MS/RN OPENING NOTES RECEIVED PATIENT ON BED AWAKE ALERT AND ORIENTED X3. PATIENT IS ON ROOM AIR SATURATING WELL. PATIENT IN NO APPARENT RESPIRATORY DISTRESS NOTED. WELL CONTINUE TO MONITOR.
[2021-06-25 07:53] LABS: ALBUMIN 2.3 g/dL (3.4-5.0); BILIRUBIN,DIRECT 6.7 mg/dL (0.0-0.2); BILIRUBIN,TOTAL 8.1 mg/dL (0.2-1.0); CALCIUM, SERUM 7.2 mg/dL (8.5-10.1); POTASSIUM 3.8 mmol/L (3.5-5.1); TOTAL PROTEIN, SERUM 4.8 g/dL (6.4-8.2)
[2021-06-25 07:55] LABS: CREATININE 7.8 mg/dL (0.6-1.3)
[2021-06-25 08:00] VITALS: BP 131/66
[2021-06-25] MEDS: POTASSIUM CHLORIDE 20 MEQ POWDER PACKET GT SCH (09:09)
[2021-06-25] MEDS: METOCLOPRAMIDE HCL 10 MG/10 ML UDC GT SCH ×2 (09:09→20:31)
[2021-06-25 12:00] VITALS: BP 138/77
[2021-06-25] MEDS: METRONIDAZOLE 500 MG TABLET PO SCH ×2 (12:09→20:32)
[2021-06-25 16:00] VITALS: BP 137/84
[2021-06-25] MEDS: CEFEPIME 2 GM in IV D5W 100 ML IV SCH (16:17)
--- NOTE | 2021-06-25 18:56 | NUR ---
TELE/RN CLOSING NOTES MS/RN CLOSING NOTES PATIENT IS ON BED AWAKE ALERT AND ORIENTED X 4. PATIENT IS ON ROOM AIR SATURATION 97%. PATIENT IN NO APPARENT RESPIRATORY DISTRESS NOTED. PATIENT NO COMPLAINED OF PAIN NOTED AT THIS TIME. IV ACCESS AT RIGHT UPPER PICC LINE AND RIGHT INTERNAL JUGULAR HD CATH PATENT AND INTACT. SEEN AND EXAMINED BY MD WITH ORDERS MADE AND CARRIED OUT. ALL DUE MEDICATIONS WAS GIVEN. SAFETY PRECAUTIONS WAS IN PLACED. SIDE RAILS UP X2. CALL LIGHT WITHIN REACH. WILL ENDORSED TO BOILERS INSPECTOR FOR YUNIOR.
--- NOTE | 2021-06-25 19:48 | NUR ---
HALL CLEANER OPENING NOTE RECEIVED PT AWAKE IN BED. A/O X3. PT IS STABLE ON ROOM AIR, SATS 97%. NO SOB OR S/S OF RESPIRATORY DISTRESS NOTED. PT ON EXTERNAL SMALL LOT OPERATOR READING SR IN THE 60s. PT HAS NO C/O PAIN OR DISCOMFORT AT THIS TIME. REYNOSO CATH IN PLACE DRAINING CLEAR YELLOW URINE. IV ACCESS IN RIGHT UPPER ARM PICC LINE AND RIGHT INTERNAL JUGULAR HD CATH, INTACT AND PATENT. SAFETY MEASURES MAINTAINED. BED IN LOWEST LOCKED POSITION, HOB ELEVATED, SIDE RAILS UP X2. CALL LIGHT AND TABLE WITHIN REACH. WILL CONTINUE WITH PLAN OF CARE.
[2021-06-25 20:00] VITALS: BP 138/81
[2021-06-26] VITALS: BP 147/79
[2021-06-26 04:00] VITALS: BP 141/77
[2021-06-26] MEDS: METRONIDAZOLE 500 MG TABLET PO SCH ×3 (04:36→20:25)
--- NOTE | 2021-06-26 06:40 | NUR ---
SHAVING MACHINE OPERATOR CLOSING NOTE PT IS IN BED WITH EYES CLOSED, AROUSABLE TO STIMULATION. A/O X3. PT IS STABLE ON ROOM AIR, SATS 97%. NO SOB OR S/S OF RESPIRATORY DISTRESS NOTED. EXTERNAL DIRECTOR RADIO NEWS READING SR IN THE 70s. PT HAS NO C/O PAIN OR DISCOMFORT AT THIS TIME. REYNOSO CATH IN PLACE DRAINING TEA-COLORED URINE WITH SEDIMENTS. IV ACCESS IN RIGHT UPPER ARM PICC LINE AND RIGHT INTERNAL JUGULAR HD CATH, INTACT AND PATENT. ALL NEEDS HAVE BEEN MET. SAFETY PRECAUTIONS MAINTAINED AT ALL TIMES. BED IN LOWEST LOCKED POSITION, HOB ELEVATED, SIDE RAILS UP X2. CALL LIGHT AND TABLE WITHIN REACH. WILL ENDORSE TO ONCOMING NURSE FOR YUNIOR.
--- NOTE | 2021-06-26 07:43 | NUR ---
PRINCIPAL ARCHITECTURAL FIRM OPENING NOTE RECEIVED PT AWAKE IN BED. A/O X3. PATIENT IN NO APPARENT DISTRESS NOTED. PATIENT ON EXTERNAL CARDIAC MONITORING SINUS RHYTHM 63 BPM. REYNOSO CATH IN PLACE DRAINING TEA COLOR URINE. IV ACCESS IN RIGHT UPPER ARM PICC LINE AND RIGHT INTERNAL JUGULAR HD CATH, INTACT AND PATENT. WILL CONTINUE TO MONITOR.
[2021-06-26 08:17] VITALS: BP 142/72
[2021-06-26] MEDS: METOCLOPRAMIDE HCL 10 MG/10 ML UDC GT SCH ×2 (09:09→20:25)
[2021-06-26] MEDS: POTASSIUM CHLORIDE 20 MEQ POWDER PACKET GT SCH (09:09)
[2021-06-26 10:50] LABS: ALBUMIN 2.4 g/dL (3.4-5.0); BILIRUBIN,DIRECT 5.6 mg/dL (0.0-0.2); BILIRUBIN,TOTAL 6.6 mg/dL (0.2-1.0); CALCIUM, SERUM 7.5 mg/dL (8.5-10.1); POTASSIUM 4.2 mmol/L (3.5-5.1); TOTAL PROTEIN, SERUM 5.3 g/dL (6.4-8.2)
[2021-06-26 11:50] LABS: CREATININE 11.6 mg/dL (0.6-1.3)
[2021-06-26 16:34] VITALS: BP 144/82
[2021-06-26] MEDS: NEPRO VAN 237 ML CAN PO SCH (17:11)
[2021-06-26] MEDS: CEFEPIME 1 GM in IV D5W 50 ML IV SCH (17:12)
--- NOTE | 2021-06-26 18:41 | NUR ---
TELE/RN CLOSING NOTES MS/RN CLOSING NOTES PATIENT IS ON BED AWAKE ALERT AND ORIENTED X 4. PATIENT IS ON ROOM AIR SATURATION 98%. PATIENT IN NO APPARENT RESPIRATORY DISTRESS NOTED. PATIENT NO COMPLAINED OF PAIN NOTED AT THIS TIME. IV ACCESS AT RIGHT UPPER PICC LINE AND RIGHT INTERNAL JUGULAR HD CATH PATENT AND INTACT. SEEN AND EXAMINED BY MD WITH ORDERS MADE AND CARRIED OUT. ALL DUE MEDICATIONS WAS GIVEN. SAFETY PRECAUTIONS WAS IN PLACED. SIDE RAILS UP X2. CALL LIGHT WITHIN REACH. HEMODIALYSIS WAS DONE 1L OUTPUT. PT EVALUATION DONE. WILL ENDORSED TO CITY WEIGHMASTER FOR YUNIOR.
--- NOTE | 2021-06-26 19:38 | NUR ---
SENIOR BEHAVIORAL SCIENTIST OPENING NOTE RECEIVED PT AWAKE IN BED. A/O X3. PT IS STABLE ON ROOM AIR, SATS 98%. NO SOB OR S/S OF RESPIRATORY DISTRESS NOTED. PT ON EXTERNAL WAIT STAFF READING SR IN THE 70s. PT HAS NO C/O PAIN OR DISCOMFORT AT THIS TIME. REYNOSO CATH IN PLACE DRAINING CLEAR YELLOW URINE. IV ACCESS IN RIGHT UPPER ARM PICC LINE AND RIGHT INTERNAL JUGULAR HD CATH, INTACT AND PATENT. SAFETY MEASURES MAINTAINED. BED IN LOWEST LOCKED POSITION, HOB ELEVATED, SIDE RAILS UP X2. CALL LIGHT AND TABLE WITHIN REACH. WILL CONTINUE WITH PLAN OF CARE.
[2021-06-26 20:00] VITALS: BP 134/71
[2021-06-27] VITALS: BP 140/81
[2021-06-27 04:00] VITALS: BP 126/57
[2021-06-27] MEDS: METRONIDAZOLE 500 MG TABLET PO SCH ×3 (04:09→20:31)
[2021-06-27 06:43] LABS: BASOPHILS % (AUTO) 0.3 % (0.0-2.0); EOSINOPHILS % (AUTO) 0.7 % (0.0-6.0); HEMATOCRIT 30 % (39-51); HEMOGLOBIN 10.6 g/dL (13.5-17.5); LYMPHOCYTES # (AUTO) 0.9 K/uL (0.8-4.8); LYMPHOCYTES % (AUTO) 8.4 % (20.0-44.0); MEAN CORPUSCULAR HGB CONC 35 g/dl (31.0-36.0); MEAN CORPUSCULAR VOLUME 89 fL (80-96); MONOCYTES # (AUTO) 1.1 K/uL (0.1-1.30); MONOCYTES % (AUTO) 9.9 % (2.0-12.0); NEUTROPHILS # (AUTO) 8.6 K/uL (1.8-8.9); NEUTROPHILS % (AUTO) 80.7 % (43.0-81.0); PLATELET COUNT (AUTO) 203 K/uL (150-450); RED BLOOD CELL COUNT(AUTO) 3.41 MIL/uL (4.5-6.0); WHITE BLOOD COUNT (AUTO) 10.7 K/uL (4.3-11.0)
--- NOTE | 2021-06-27 06:51 | NUR ---
INTERNET DESIGNER CLOSING NOTE PT IS AWAKE IN BED. A/O X3. PT IS STABLE ON ROOM AIR. NO SOB OR S/S OF RESPIRATORY DISTRESS NOTED. EXTERNAL HORSE AND WAGON DRIVER READING SR IN THE 70s. PT HAS NO C/O PAIN OR DISCOMFORT AT THIS TIME. REYNOSO CATH IN PLACE DRAINING TEA-COLORED URINE WITH SEDIMENTS. IV ACCESS IN RIGHT UPPER ARM PICC LINE AND RIGHT INTERNAL JUGULAR HD CATH, INTACT AND PATENT. ALL NEEDS HAVE BEEN MET. SAFETY PRECAUTIONS MAINTAINED AT ALL TIMES. BED IN LOWEST LOCKED POSITION, HOB ELEVATED, SIDE RAILS UP X2. CALL LIGHT AND TABLE WITHIN REACH. WILL ENDORSE TO ONCOMING NURSE FOR YUNIOR.
[2021-06-27 06:59] LABS: ALBUMIN 2.2 g/dL (3.4-5.0); BILIRUBIN,DIRECT 4.1 mg/dL (0.0-0.2); BILIRUBIN,TOTAL 4.8 mg/dL (0.2-1.0); CALCIUM, SERUM 7.2 mg/dL (8.5-10.1); POTASSIUM 3.7 mmol/L (3.5-5.1)
[2021-06-27 07:06] LABS: CREATININE 8.7 mg/dL (0.6-1.3)
--- NOTE | 2021-06-27 07:31 | NUR ---
HEAD LOFT WORKER OPENING NOTES RECEIVED PT AWAKE IN BED IN NO ACUTE SIGNS OF DISTRESS. A/O X3. ABLE TO MAKE NEEDS KNOWN, DENIES PAIN OR ANY DISCOMFORTS AT THIS TIME. ON ROOM AIR, BREATHING EVEN AND UNLABORED. ON EXTERNAL ADMINISTRATIVE NURSING SUPERVISOR WITH CURRENT READING OF NSR WITH HR ON THE 60'S, NO C/O CARDIAC DISTRESS VOICED AT THIS TIME. FERNANDA PICC LINE IN PLACE AND PATENT. RIGHT IJ HD CATH IN PLACE WITH DRESSING C/D/I. SAFETY MEASURES IN PLACE: BED IN LOWEST LOCKED POSITION, HOB ELEVATED, SIDE RAILS UP X2. CALL LIGHT AND BEDSIDE TABLE WITHIN EASY REACH OF PT. WILL CONTINUE PT ACCORDINGLY
[2021-06-27 08:30] VITALS: BP 147/90
[2021-06-27] MEDS: METOCLOPRAMIDE HCL 10 MG/10 ML UDC GT SCH ×2 (08:33→20:31)
[2021-06-27] MEDS: POTASSIUM CHLORIDE 20 MEQ POWDER PACKET GT SCH (08:33)
[2021-06-27] MEDS: NEPRO VAN 237 ML CAN PO SCH ×3 (08:36→17:19)
[2021-06-27 09:33] LABS: LYMPHOCYTES % (MANUAL) 13 % (16-48); MONOCYTES % (MANUAL) 6 % (0-11.0); NEUTROPHILS % (MANUAL) 81 (42-76)
[2021-06-27 12:50] LABS: IRON, SERUM 70 ug/dl (50-175); TOTAL IRON BINDING CAPACITY 199 ug/dl (250-450)
[2021-06-27 13:00] LABS: FERRITIN 435 ng/mL (8-388)
[2021-06-27 16:46] VITALS: BP 154/81
[2021-06-27] MEDS: CEFEPIME 1 GM in IV D5W 50 ML IV SCH (17:19)
--- NOTE | 2021-06-27 18:45 | NUR ---
MS RN CLOSING NOTES PT IN BED AWAKE AND WATCHING TV AT THIS TIME. A/O X3. ABLE TO MAKE NEEDS KNOWN. ON ROOM AIR, BREATHING EVEN AND UNLABORED, NO SOB NOTED DURING SHIFT. TRIPLE LUMEN FERNANDA PICC LINE IN PLACE, PATENT AND FLUSHES WELL. RIGHT IJ HD CATH IN PLACE WITH DRESSING C/D/I. REYNOSO IN PLACE WITH SMALL AMOUNT OF DARK YELLOW URINE OUTPUT NOTED, REYNOSO CARE DONE. ALL NEEDS AND CARE PROVIDED WELL. SAFETY MEASURES IN PLACE: BED IN LOWEST LOCKED POSITION WITH SIDE RAILS UP X2. CALL LIGHT AND BEDSIDE TABLE WITHIN EASY REACH OF PT. WILL ENDORSE YUNIOR TO TECHNOLOGY APPLICATIONS TEACHER NURSE.
--- NOTE | 2021-06-27 19:30 | NUR ---
RN OPENING NOTE PATIENT IN BED AWAKE, ABLE TO MAKE NEEDS KNOWN. A/O X 2 AT THIS TIME. PATIENT'S BREATHING EVEN AND UNLABORED, NO SIGNS OF RESPIRATORY DISTRESS, TOLERATES ROOM AIR. PATIENT HAS A REYNOSO PLACED DRAINING DARK YELLOW/MAKI URINE. FERNANDA PICC LINE PATENT AND INTACT. R IJ HD CATH ACCESS IN PLACE WELL. DOES NOT COMPLAIN OF ANY PAIN, NAUSEA, OR VOMITING. SAFETY MEASURES IN PLACE: BED IN LOCKED AND IN LOWEST POSITION, CALL LIGHT WITHIN REACH, SIDE RAILS UP. ENCOURAGED PATIENT TO CALL WHEN IN NEED. WILL MONITOR PATIENT CONTINUOUSLY.
--- NOTE | 2021-06-27 20:15 | NUR ---
RN NOTE REYNOSO CATHETER D/C.
[2021-06-28] MEDS: METRONIDAZOLE 500 MG TABLET PO SCH ×3 (05:07→20:50)
[2021-06-28] MEDS: ONDANSETRON HCL/PF 4 MG/2 ML VIAL IVP PRN (05:19)
--- NOTE | 2021-06-28 05:20 | NUR ---
RN NOTE PATIENT GIVEN ZOFRAN D/T EMESIS X 1 AND NAUSEA
--- NOTE | 2021-06-28 06:54 | NUR ---
RN CLOSING NOTE PATIENT IS IN BED, EYES CLOSED. EASILY AROUSED. BREATHING EVEN AND UNLABORED, TOLERATING ROOM AIR. NO COMPLAINS OF PAIN, N/V AT THIS TIME. FERNANDA PICC LINE PATENT AND INTACT. PATIENT'S REYNOSO D/C'D. PATIENT SCHEDULED FOR HD TODAY. SAFETY MEASURES IMPLEMENTED. ALL NEEDS MET AND CARRIED OUT, ALL ORDERS CARRIED OUT. WILL ENDORSE TO DAY SHIFT NURSE FOR YUNIOR.
[2021-06-28 07:33] LABS: EOSINOPHILS % (AUTO) 1.6 % (0.0-6.0); HEMATOCRIT 28 % (39-51); LYMPHOCYTES # (AUTO) 1.2 K/uL (0.8-4.8); LYMPHOCYTES % (AUTO) 8.8 % (20.0-44.0); MEAN CORPUSCULAR HGB CONC 35 g/dl (31.0-36.0); MEAN CORPUSCULAR VOLUME 89 fL (80-96); MONOCYTES # (AUTO) 0.1 K/uL (0.1-1.30); MONOCYTES % (AUTO) 0.5 % (2.0-12.0); NEUTROPHILS % (AUTO) 89.1 % (43.0-81.0); PLATELET COUNT (AUTO) 319 K/uL (150-450); RED BLOOD CELL COUNT(AUTO) 3.19 MIL/uL (4.5-6.0); WHITE BLOOD COUNT (AUTO) 13.4 K/uL (4.3-11.0)
[2021-06-28 08:00] VITALS: BP 156/91
--- NOTE | 2021-06-28 08:00 | NUR ---
m/s vice president consulting services: notes pt more alert now and looking for his belongings (clothing and bag). no belongings found at bedside. f/u made to icu, spoke to lesli (jose miguel) and no left belongings here. on pt's inventory list, pt has a pouch, belt, pants, and shoes. no inventory list done when pt was transferred here on 06/24/21. cn aware.
[2021-06-28] MEDS: METOCLOPRAMIDE HCL 10 MG/10 ML UDC GT SCH ×2 (08:47→20:50)
[2021-06-28] MEDS: NEPRO VAN 237 ML CAN PO SCH ×3 (08:47→16:30)
[2021-06-28] MEDS: POTASSIUM CHLORIDE 20 MEQ POWDER PACKET GT SCH (08:47)
--- NOTE | 2021-06-28 09:15 | NUR ---
m/s fugitive detective: notes procalcitonin 5.57, result trending down. no distress noted. will continue to monitor.
[2021-06-28 10:39] LABS: CHOLESTEROL 130 mg/dL (<200); HDL CHOLESTEROL 13 mg/dL (40-60); LDL 77 mg/dL (0-99); TRIGLYCERIDES 223 mg/dL (30-150)
--- NOTE | 2021-06-28 10:45 | NUR ---
m/s software security architect: notes f/u made to dr. amos re: consult (foot wounds) dated on 06/21/21, spoke to pelon and will let her know. pt made aware.
--- NOTE | 2021-06-28 11:40 | NUR ---
m/s doctor of naprapathic medicine: rehab consultant consult seen by dr. JOHANSEN with tx order. order acknowledged.
[2021-06-28 13:16] LABS: BAND % (MANUAL) 3 % (0.0-5.0); LYMPHOCYTES % (MANUAL) 8 % (16-48); MONOCYTES % (MANUAL) 6 % (0-11.0); NEUTROPHILS % (MANUAL) 83 (42-76)
[2021-06-28] MEDS: ASPIRIN 81 MG TAB.CHEW PO SCH (13:33)
[2021-06-28] MEDS: CEFTRIAXONE 1 G in IV D5W 50 ML IV SCH (13:41)
--- NOTE | 2021-06-28 14:00 | NUR ---
m/s complaint analyst: notes resting comfortable in bed. no distress. for hd tx today. awaiting for hd nurse. pt aware.
[2021-06-28 16:00] VITALS: BP 155/97
[2021-06-28] MEDS: MINERAL OIL/PETROLATUM,WHITE 120 GM JAR TP SCH (16:31)
--- NOTE | 2021-06-28 18:10 | NUR ---
resting comfortable in bed. no distress. pt for hd tx tonight. needs attended. will continue to monitor.
--- NOTE | 2021-06-28 19:10 | NUR ---
m/s mine wedge sawyer: notes report given to slade (tanya) for continuity of care.
--- NOTE | 2021-06-28 19:46 | NUR ---
MS RN OPENING NOTE RECEIVED PT AWAKE IN BED. A/O X3. PT IS STABLE ON ROOM AIR. NO SOB OR S/S OF RESPIRATORY DISTRESS NOTED. PT HAS NO C/O PAIN OR DISCOMFORT AT THIS TIME. IV ACCESS IN RIGHT UPPER ARM PICC LINE AND RIGHT INTERNAL JUGULAR HD CATH, INTACT AND PATENT. SAFETY MEASURES MAINTAINED. BED IN LOWEST LOCKED POSITION, HOB ELEVATED, SIDE RAILS UP X2. CALL LIGHT AND TABLE WITHIN REACH. WILL CONTINUE WITH PLAN OF CARE.
[2021-06-28 20:00] VITALS: BP_SYST 146; BP_SYST 169; BP_DIAS 81; BP_DIAS 97
--- NOTE | 2021-06-28 22:30 | NUR ---
PER BENITA, SKI TECHNICIAN, HEMODIALYSIS COMPLETED WITH 3 LITERS OUTPUT. PT IS IN STABLE CONDITION. WILL CONTINUE TO MONITOR.
[2021-06-29] MEDS: METRONIDAZOLE 500 MG TABLET PO SCH ×3 (04:24→21:02)
--- NOTE | 2021-06-29 06:14 | NUR ---
MS RN CLOSING NOTE PT IS AWAKE IN BED. A/O X3. PT IS STABLE ON ROOM AIR. NO SOB OR S/S OF RESPIRATORY DISTRESS NOTED. PT HAS NO C/O PAIN OR DISCOMFORT AT THIS TIME. IV ACCESS IS INTACT, PATENT, AND FLUSHING WELL. ALL NEEDS HAVE BEEN MET. SAFETY MEASURES MAINTAINED AT ALL TIMES. BED IN LOWEST LOCKED POSITION, HOB ELEVATED, SIDE RAILS UP X2. CALL LIGHT AND TABLE WITHIN REACH. WILL ENDORSE TO ONCOMING NURSE FOR YUNIOR.
[2021-06-29 07:02] LABS: ALBUMIN 2.5 g/dL (3.4-5.0); BILIRUBIN,DIRECT 2.7 mg/dL (0.0-0.2); BILIRUBIN,TOTAL 3.3 mg/dL (0.2-1.0); TOTAL PROTEIN, SERUM 5.8 g/dL (6.4-8.2)
[2021-06-29 08:00] VITALS: BP 145/84
[2021-06-29] MEDS: ASPIRIN 81 MG TAB.CHEW PO SCH (08:23)
[2021-06-29] MEDS: POTASSIUM CHLORIDE 20 MEQ POWDER PACKET GT SCH (08:23)
[2021-06-29] MEDS: METOCLOPRAMIDE HCL 10 MG/10 ML UDC GT SCH (08:23)
[2021-06-29] MEDS: NEPRO VAN 237 ML CAN PO SCH ×3 (08:28→16:47)
--- NOTE | 2021-06-29 08:30 | NUR ---
RN OPENING NOTE- RECEIVED PT AWAKE IN BED. A/O X3. PT IS STABLE ON ROOM AIR. NO SOB OR S/S OF RESPIRATORY DISTRESS NOTED. PT HAS NO C/O PAIN OR DISCOMFORT AT THIS TIME. IV ACCESS IN RIGHT UPPER ARM PICC LINE AND RIGHT INTERNAL JUGULAR HD CATH, INTACT AND PATENT. SAFETY MEASURES MAINTAINED. BED IN LOWEST LOCKED POSITION, HOB ELEVATED, SIDE RAILS UP X2. CALL LIGHT AND TABLE WITHIN REACH. WILL CONTINUE WITH PLAN OF CARE.
[2021-06-29] MEDS: MINERAL OIL/PETROLATUM,WHITE 120 GM JAR TP SCH ×2 (08:32→16:48)
[2021-06-29] MEDS: MINERAL OIL/PETROLATUM,WHITE 120 GM JAR TP PRN ×2 (08:32→16:47)
[2021-06-29] MEDS ORDERED: POTASSIUM CHLORIDE 20 MEQ POWDER PACKET PO SCH (11:47)
[2021-06-29 12:50] LABS: BASOPHILS # (AUTO) 0.1 K/uL (0.0-0.2); EOSINOPHILS % (AUTO) 1.1 % (0.0-6.0); HEMATOCRIT 29 % (39-51); HEMOGLOBIN 9.9 g/dL (13.5-17.5); LYMPHOCYTES # (AUTO) 1.1 K/uL (0.8-4.8); LYMPHOCYTES % (AUTO) 7.5 % (20.0-44.0); MEAN CORPUSCULAR HGB CONC 34 g/dl (31.0-36.0); MEAN CORPUSCULAR VOLUME 90 fL (80-96); MONOCYTES # (AUTO) 1.2 K/uL (0.1-1.30); MONOCYTES % (AUTO) 8.7 % (2.0-12.0); NEUTROPHILS # (AUTO) 11.6 K/uL (1.8-8.9); NEUTROPHILS % (AUTO) 81.7 % (43.0-81.0); PLATELET COUNT (AUTO) 482 K/uL (150-450); RED BLOOD CELL COUNT(AUTO) 3.21 MIL/uL (4.5-6.0); WHITE BLOOD COUNT (AUTO) 14.1 K/uL (4.3-11.0)
[2021-06-29] MEDS: CEFTRIAXONE 1 G in IV D5W 50 ML IV SCH (13:11)
[2021-06-29 13:26] LABS: LYMPHOCYTES % (MANUAL) 12 % (16-48); MONOCYTES % (MANUAL) 10 % (0-11.0); NEUTROPHILS % (MANUAL) 78 (42-76)
--- NOTE | 2021-06-29 14:58 | NUR ---
RN NOTE- DR ORDERED BLOOD CX AND STOOL CX. HEP ORDERED WELL. PT W ONE EPISODE OF DIARRHEA THIS AFTERNOON. OBTAINING SPECIMEN. WILL FOLLOW THROUGH W LAB.
[2021-06-29 16:00] VITALS: BP 176/96
--- NOTE | 2021-06-29 17:50 | NUR ---
RN NOTE- STOOL CX OBTAINED AFTER 2ND EPISODE OF DIARRHEA. WALKED TO LAB AND DELIVERED.
--- NOTE | 2021-06-29 18:33 | NUR ---
RN CLOSING NOTE- PT IN BED, ALERT ORIENTED TO PERSON PLACE. CONFUSED AT TIMES. BC TAKEN FROM PICC LINE AND SENT TO LAB. STOOL CX TAKEN AND SENT TO LAB. PO INTAKE GOOD, MED COMPLIANT, NEEDS ATTENDED. SIDE RAILS UP X 2, BED LOCKED, NEEDS MET. MONITOR FOR SAFETY.
[2021-06-29 20:00] VITALS: BP 162/94
[2021-06-29] MEDS: METOCLOPRAMIDE HCL 10 MG/10 ML UDC PO SCH (21:02)
[2021-06-30] MEDS: METRONIDAZOLE 500 MG TABLET PO SCH (04:56)
[2021-06-30 06:29] LABS: BASOPHILS % (AUTO) 0.3 % (0.0-2.0); EOSINOPHILS % (AUTO) 0.5 % (0.0-6.0); HEMATOCRIT 28 % (39-51); HEMOGLOBIN 9.5 g/dL (13.5-17.5); LYMPHOCYTES # (AUTO) 1.5 K/uL (0.8-4.8); LYMPHOCYTES % (AUTO) 9.5 % (20.0-44.0); MEAN CORPUSCULAR HGB CONC 35 g/dl (31.0-36.0); MEAN CORPUSCULAR VOLUME 90 fL (80-96); MONOCYTES # (AUTO) 1.3 K/uL (0.1-1.30); MONOCYTES % (AUTO) 8.3 % (2.0-12.0); NEUTROPHILS # (AUTO) 12.9 K/uL (1.8-8.9); NEUTROPHILS % (AUTO) 81.4 % (43.0-81.0); PLATELET COUNT (AUTO) 566 K/uL (150-450); RED BLOOD CELL COUNT(AUTO) 3.06 MIL/uL (4.5-6.0); WHITE BLOOD COUNT (AUTO) 15.9 K/uL (4.3-11.0)
[2021-06-30 06:49] LABS: POTASSIUM 4.4 mmol/L (3.5-5.1)
[2021-06-30 06:54] LABS: CREATININE 12.1 mg/dL (0.6-1.3)
[2021-06-30] MEDS: NEPRO VAN 237 ML CAN PO SCH ×3 (08:16→17:12)
[2021-06-30] MEDS: MINERAL OIL/PETROLATUM,WHITE 120 GM JAR TP SCH ×2 (09:00→17:00)
[2021-06-30] MEDS: METOCLOPRAMIDE HCL 10 MG/10 ML UDC PO SCH ×2 (09:21→21:10)
[2021-06-30] MEDS: ASPIRIN 81 MG TAB.CHEW PO SCH (09:21)
[2021-06-30] MEDS: POTASSIUM CHLORIDE 20 MEQ POWDER PACKET PO SCH (09:21)
[2021-06-30] MEDS: MINERAL OIL/PETROLATUM,WHITE 120 GM JAR TP PRN ×3 (09:22→18:01)
[2021-06-30] MEDS: LACTOBACILLUS RHAMNOSUS GG 1 EACH CAP.SPRINK PO SCH (17:50)
--- NOTE | 2021-06-30 19:00 | NUR ---
MS RN CLOSING NOTE RECEIVED PT AWAKE IN BED. A/O X3. PT IS STABLE ON ROOM AIR. NO SOB OR S/S OF RESPIRATORY DISTRESS NOTED. PT HAS NO C/O PAIN OR DISCOMFORT AT THIS TIME. IV ACCESS IN RIGHT UPPER ARM PICC LINE AND RIGHT INTERNAL JUGULAR HD CATH, INTACT AND PATENT. PATIENT FOR DIAGNOSTIC THORACENTESIS TOMORROW BUT PATIENT WANTS TO SPEAK WITH MD FIRST REGARDING PROCEDURE BEFORE SIGNING THE CONSENT. PATIENT FINISHED HD TODAY AND PROCEDURE TOLERATED WELL. SAFETY MEASURES MAINTAINED. BED IN LOWEST LOCKED POSITION, HOB ELEVATED, SIDE RAILS UP X2. CALL LIGHT AND TABLE WITHIN REACH. WILL ENDORSE TO DIRECTOR SANITATION BUREAU NURSE FOR CONTINUITY OF CARE.
--- NOTE | 2021-06-30 19:40 | NUR ---
MS RN NOTES RECEIVED LYING COMFORTABLY ON BED,A/O X2-3,BREATHING REGULAR,NOT IN ANY FORM OF DISTRESS,WITH RIGHT UPPER MIDLINE FOR MEDS,RIGHT IJ FOR HD ACCESS.HAD ONE TODAY,TAKEN OUT 1 LITER.AMBULATE WITH STEADY GAIT,CALL LIGHT IN REACH,NEEDS ANTICIPATED.
[2021-06-30 20:59] VITALS: BP 142/100
--- NOTE | 2021-07-01 01:00 | NUR ---
MS RN NOTES SOUND ASLEEP,KEPT WARM AND COMFORTABLE
--- NOTE | 2021-07-01 06:27 | NUR ---
MS RN NOTES FAIRLY RESTED AT NIGHT.FOR ULTRASOUND GUIDED THORACENTESIS.PATIENT VERBALIZED ,HE WANTS MORE INFORMATION FROM MD MORRELL REGARDING THE PROCEDURE BEFORE HE SIGN THE CONSENT.MED COMPLIANT.IN NO ACUTE DISTRESS.WILL ENDORSE TO DAY NURSE FOR YUNIOR.
[2021-07-01 07:29] LABS: BASOPHILS # (AUTO) 0.1 K/uL (0.0-0.2); BASOPHILS % (AUTO) 0.6 % (0.0-2.0); EOSINOPHILS % (AUTO) 1.2 % (0.0-6.0); HEMATOCRIT 26 % (39-51); HEMOGLOBIN 8.9 g/dL (13.5-17.5); LYMPHOCYTES # (AUTO) 1.4 K/uL (0.8-4.8); LYMPHOCYTES % (AUTO) 9.7 % (20.0-44.0); MEAN CORPUSCULAR HGB CONC 34 g/dl (31.0-36.0); MEAN CORPUSCULAR VOLUME 91 fL (80-96); MONOCYTES # (AUTO) 1.3 K/uL (0.1-1.30); MONOCYTES % (AUTO) 9.2 % (2.0-12.0); NEUTROPHILS % (AUTO) 79.3 % (43.0-81.0); PLATELET COUNT (AUTO) 613 K/uL (150-450); RED BLOOD CELL COUNT(AUTO) 2.88 MIL/uL (4.5-6.0); WHITE BLOOD COUNT (AUTO) 13.9 K/uL (4.3-11.0)
[2021-07-01 08:00] VITALS: BP 116/71
[2021-07-01] MEDS: ASPIRIN 81 MG TAB.CHEW PO SCH (08:33)
[2021-07-01] MEDS: POTASSIUM CHLORIDE 20 MEQ POWDER PACKET PO SCH (08:33)
[2021-07-01] MEDS: LACTOBACILLUS RHAMNOSUS GG 1 EACH CAP.SPRINK PO SCH ×2 (08:33→16:42)
[2021-07-01] MEDS: METOCLOPRAMIDE HCL 10 MG/10 ML UDC PO SCH ×2 (08:35→21:18)
[2021-07-01] MEDS: NEPRO VAN 237 ML CAN PO SCH ×3 (08:36→16:43)
[2021-07-01] MEDS: MINERAL OIL/PETROLATUM,WHITE 120 GM JAR TP PRN ×2 (08:36→16:54)
[2021-07-01] MEDS: MINERAL OIL/PETROLATUM,WHITE 120 GM JAR TP SCH ×2 (08:37→16:55)
--- NOTE | 2021-07-01 11:00 | NUR ---
MS RN NOTE PATIENT SEEN BY DR. MORRELL AND EXPLAINED THE PROCEDURE THORACENTESIS TO THE PATIENT. PATIENT VERBALIZED UNDERSTANDING AND SIGNED THE CONSENT WITNESSED BY THIS NURSE. CONSENT ATTACHED TO CHART. WILL CONTINUE TO MONITOR PATIENT.
--- NOTE | 2021-07-01 11:40 | NUR ---
MS RN NOTE PATIENT SEEN BY ID PLANT BREEDER SCIENTIST WITH ORDERS MADE AND CARRIED OUT.
--- NOTE | 2021-07-01 14:40 | NUR ---
MS RN NOTE PATIENT SEEN BY RADIOLOGIST FOR THORACENTESIS ORDERED BY PATIENT WITH MINIMAL FLUID ON ULTRASOUND. CANCELLED PROCEDURE. DR. PORSCHE SINGH.
[2021-07-01] MEDS: ACETAMINOPHEN 325 MG TABLET PO PRN (16:43)
--- NOTE | 2021-07-01 16:55 | NUR ---
MS RN NOTE PATIENT WITH ELEVATED BODY TEMPERATURE OF 100.5F TYLENOL GIVEN STANDING ORDER. COOLING MEASURES DONE. WILL CONTINUE TO MONITOR PATIENT. PATIENT SAVANNA CLEMENTE ORDERED.
--- NOTE | 2021-07-01 17:30 | NUR ---
MS RN NOTE RECHECKED BODY TEMPERATURE, LATEST TEMPERATURE 97.9. WILL CONTINUE TO MONITOR PATIENT.
--- NOTE | 2021-07-01 19:10 | NUR ---
MS RN CLOSING NOTE RECEIVED PT AWAKE IN BED. A/O X3. PT IS STABLE ON ROOM AIR. NO SOB OR S/S OF RESPIRATORY DISTRESS NOTED. PT HAS NO C/O PAIN OR DISCOMFORT AT THIS TIME. IV ACCESS IN RIGHT UPPER ARM PICC LINE AND RIGHT INTERNAL JUGULAR HD CATH, INTACT AND PATENT. SAFETY MEASURES MAINTAINED. BED IN LOWEST LOCKED POSITION, HOB ELEVATED, SIDE RAILS UP X2. CALL LIGHT AND TABLE WITHIN REACH. WILL ENDORSE TO NEXT SHIFT FOR CONTINUITY OF CARE.
--- NOTE | 2021-07-01 19:35 | NUR ---
MS RN OPENING NOTES: RECEIVED PATIENT AWAKE IN BED, BED IN LOW POSITION, CALL LIGHTS WITHIN REACH, NO COMPLAIN OF PAIN AND DISCOMFORT AT THIS TIME, PATIENT IS AMBULATORY WITH SUPERVISION, A/O X2-3 WITH IV LINE AT FERNANDA PICC LINE AND DIALYSIS PORT AT RIGHT IJ CATHETER, NO BLEEDING NOTED, PATIENT KEPT CLEAN AND DRY ,WILL CONTINUE TO MONITOR.
[2021-07-01 20:00] VITALS: BP 152/92
--- NOTE | 2021-07-02 07:04 | NUR ---
MS RN CLOSING NOTES: RECEIVED PATIENT SLEEP IN BED COMFORTABLY, BED IN LOW POSITION, CALL LIGHTS WITHIN REACH, NO COMPLAIN OF PAIN AND DISCOMFORT AT THIS TIME, A/O X2-3, CONTINENT, AMBULATORY WITH WALKER, WITH FERNANDA PICC LINE AND RIGHT INTRA JUGULAR CATHETER FOR HD, HOLD PROCEDURE THORACENTESIS ISELA RESULT WITH MINIMAL FLUID, PATIENT KEPT CLEAN AND DRY, ALL NEEDS MET, ENDORSE TO INCOMING SHIFT.
[2021-07-02 07:35] LABS: BASOPHILS # (AUTO) 0.1 K/uL (0.0-0.2); EOSINOPHILS % (AUTO) 1.5 % (0.0-6.0); HEMATOCRIT 25 % (39-51); HEMOGLOBIN 8.5 g/dL (13.5-17.5); LYMPHOCYTES # (AUTO) 1.3 K/uL (0.8-4.8); LYMPHOCYTES % (AUTO) 10.5 % (20.0-44.0); MEAN CORPUSCULAR HGB CONC 35 g/dl (31.0-36.0); MEAN CORPUSCULAR VOLUME 92 fL (80-96); MONOCYTES # (AUTO) 1.3 K/uL (0.1-1.30); MONOCYTES % (AUTO) 10.1 % (2.0-12.0); NEUTROPHILS # (AUTO) 9.7 K/uL (1.8-8.9); NEUTROPHILS % (AUTO) 76.9 % (43.0-81.0); PLATELET COUNT (AUTO) 670 K/uL (150-450); RED BLOOD CELL COUNT(AUTO) 2.69 MIL/uL (4.5-6.0); WHITE BLOOD COUNT (AUTO) 12.6 K/uL (4.3-11.0)
[2021-07-02 08:00] VITALS: BP 135/92
[2021-07-02 08:09] LABS: ALBUMIN 2.6 g/dL (3.4-5.0); BILIRUBIN,DIRECT 1.7 mg/dL (0.0-0.2); BILIRUBIN,TOTAL 2.1 mg/dL (0.2-1.0)
--- NOTE | 2021-07-02 08:22 | NUR ---
MS/RN OPENING NOTES: RECEIVED PATIENT IN BED, AWAKE, ALERT AND ORIENTED X3. ABLE TO MAKE NEEDS KNOWN. STABLE ON ROOM AIR. CONTINENT AND USES BSC, AMBULATORY WITH WALKER, WITH FERNANDA PICC LINE AND RIGHT INTRA JUGULAR CATHETER FOR HEMODIALYSIS. SAFETY PRECAUTIONS IN PLACED. BED LOCKED ON LOWEST POSITION, SIDE RAILS UPX2, CALL LIGHT AND TABLE WITHIN EASY REACH. WILL CONTINUE TO MONITOR PATIENT.
[2021-07-02] MEDS: POTASSIUM CHLORIDE 20 MEQ POWDER PACKET PO SCH (09:08)
[2021-07-02] MEDS: NEPRO VAN 237 ML CAN PO SCH ×3 (09:08→18:04)
[2021-07-02] MEDS: LACTOBACILLUS RHAMNOSUS GG 1 EACH CAP.SPRINK PO SCH ×2 (09:08→18:04)
[2021-07-02] MEDS: AMLODIPINE BESYLATE 5 MG TABLET PO SCH (09:09)
[2021-07-02] MEDS: ASPIRIN 81 MG TAB.CHEW PO SCH (09:10)
[2021-07-02] MEDS: METOCLOPRAMIDE HCL 10 MG/10 ML UDC PO SCH ×2 (09:10→20:29)
[2021-07-02] MEDS: MINERAL OIL/PETROLATUM,WHITE 120 GM JAR TP PRN (09:11)
[2021-07-02] MEDS: MINERAL OIL/PETROLATUM,WHITE 120 GM JAR TP SCH ×2 (09:11→18:05)
[2021-07-02 10:00] VITALS: BP 166/96
[2021-07-02 16:00] VITALS: BP 145/94
--- NOTE | 2021-07-02 19:32 | NUR ---
MS RN NOTES RECEIVED PATIENT IN BED, AWAKE, ALERT AND ORIENTED X3. ABLE TO MAKE NEEDS KNOWN. STABLE ON ROOM AIR. CONTINENT AND USES BSC, AMBULATORY WITH WALKER, WITH FERNANDA PICC LINE AND RIGHT INTRA JUGULAR CATHETER FOR HEMODIALYSIS. SAFETY PRECAUTIONS IN PLACED. BED LOCKED ON LOWEST POSITION, SIDE RAILS UPX2, CALL LIGHT AND TABLE WITHIN EASY REACH. WILL CONTINUE TO MONITOR
--- NOTE | 2021-07-02 19:35 | NUR ---
MS RN CLOSING NOTES PATIENT IN BED, AWAKE, ALERT AND ORIENTED X3. ABLE TO MAKE NEEDS KNOWN. STABLE ON ROOM AIR. CONTINENT AND USES BSC, AMBULATORY WITH WALKER, WITH FERNANDA PICC LINE AND RIGHT INTRA JUGULAR CATHETER FOR HEMODIALYSIS. SAFETY PRECAUTIONS IN PLACED. BED LOCKED ON LOWEST POSITION, SIDE RAILS UPX2, CALL LIGHT AND TABLE WITHIN EASY REACH. WILL ENDORSE TO THE NEXT SHIFT FOR YUNIOR.
[2021-07-02 20:00] VITALS: BP 140/90
--- NOTE | 2021-07-03 06:51 | NUR ---
MS RN NOTES PATIENT IN BED, AWAKE, ALERT AND ORIENTED X3. ABLE TO MAKE NEEDS KNOWN. STABLE ON ROOM AIR. CONTINENT AND USES BSC, AMBULATORY WITH WALKER, WITH FERNANDA PICC LINE AND RIGHT INTRA JUGULAR CATHETER FOR HEMODIALYSIS. SAFETY PRECAUTIONS IN PLACED. BED LOCKED ON LOWEST POSITION, SIDE RAILS UPX2, CALL LIGHT AND TABLE WITHIN EASY REACH. WILL ENDORSE TO DAY SHIFT NURSE.
[2021-07-03 08:00] VITALS: BP 142/87
[2021-07-03] MEDS: ASPIRIN 81 MG TAB.CHEW PO SCH (09:07)
[2021-07-03] MEDS: METOCLOPRAMIDE HCL 10 MG/10 ML UDC PO SCH ×2 (09:07→21:23)
[2021-07-03] MEDS: LACTOBACILLUS RHAMNOSUS GG 1 EACH CAP.SPRINK PO SCH ×2 (09:07→18:07)
[2021-07-03] MEDS: AMLODIPINE BESYLATE 5 MG TABLET PO SCH (09:08)
[2021-07-03] MEDS: NEPRO VAN 237 ML CAN PO SCH ×3 (09:08→18:08)
[2021-07-03] MEDS: POTASSIUM CHLORIDE 20 MEQ POWDER PACKET PO SCH (09:08)
[2021-07-03] MEDS: MINERAL OIL/PETROLATUM,WHITE 120 GM JAR TP SCH ×2 (09:09→18:08)
[2021-07-03 10:04] LABS: BASOPHILS # (AUTO) 0.1 K/uL (0.0-0.2); EOSINOPHILS % (AUTO) 1.5 % (0.0-6.0); HEMATOCRIT 25 % (39-51); HEMOGLOBIN 8.8 g/dL (13.5-17.5); LYMPHOCYTES % (AUTO) 9.8 % (20.0-44.0); MEAN CORPUSCULAR HGB CONC 35 g/dl (31.0-36.0); MEAN CORPUSCULAR VOLUME 91 fL (80-96); MONOCYTES # (AUTO) 1.6 K/uL (0.1-1.30); MONOCYTES % (AUTO) 15.3 % (2.0-12.0); NEUTROPHILS # (AUTO) 7.6 K/uL (1.8-8.9); NEUTROPHILS % (AUTO) 72.4 % (43.0-81.0); PLATELET COUNT (AUTO) 656 K/uL (150-450); RED BLOOD CELL COUNT(AUTO) 2.76 MIL/uL (4.5-6.0); WHITE BLOOD COUNT (AUTO) 10.5 K/uL (4.3-11.0)
[2021-07-03 11:06] LABS: ALBUMIN 2.7 g/dL (3.4-5.0); BILIRUBIN,TOTAL 1.8 mg/dL (0.2-1.0); CALCIUM, SERUM 7.7 mg/dL (8.5-10.1); POTASSIUM 5.7 mmol/L (3.5-5.1); TOTAL PROTEIN, SERUM 6.2 g/dL (6.4-8.2)
[2021-07-03 11:08] LABS: CREATININE 11.4 mg/dL (0.6-1.3)
[2021-07-03 13:27] LABS: BAND % (MANUAL) 1 % (0.0-5.0); EOSINOPHILS % (MANUAL) 5 % (0-4); LYMPHOCYTES % (MANUAL) 10 % (16-48); MONOCYTES % (MANUAL) 15 % (0-11.0); NEUTROPHILS % (MANUAL) 69 (42-76)
[2021-07-03 16:00] VITALS: BP 142/86
--- NOTE | 2021-07-03 19:20 | NUR ---
MS/RN CLOSING NOTES: PATIENT IN BED, AWAKE, ALERT AND ORIENTED X3. ABLE TO MAKE NEEDS KNOWN. STABLE ON ROOM AIR. CONTINENT AND USES BSC, AMBULATORY WITH WALKER, WITH FERNANDA PICC LINE AND RIGHT INTRA JUGULAR CATHETER FOR HEMODIALYSIS. SAFETY PRECAUTIONS IN PLACED. BED LOCKED ON LOWEST POSITION, SIDE RAILS UPX2, CALL LIGHT AND TABLE WITHIN EASY REACH. WILL ENDORSE TO THE NEXT SHIFT FOR YUNIOR.
--- NOTE | 2021-07-03 19:34 | NUR ---
MS RN NOTES PATIENT IN BED, AWAKE, ALERT AND ORIENTED X3. ABLE TO MAKE NEEDS KNOWN. STABLE ON ROOM AIR. CONTINENT AND USES BSC, AMBULATORY WITH WALKER, WITH FERNANDA PICC LINE AND RIGHT INTRA JUGULAR CATHETER FOR HEMODIALYSIS. SAFETY PRECAUTIONS IN PLACED. BED LOCKED ON LOWEST POSITION, SIDE RAILS UPX2, CALL LIGHT AND TABLE WITHIN EASY REACH. WILL CONTINUE TO MONITOR.
[2021-07-03 20:00] VITALS: BP 138/86
--- NOTE | 2021-07-04 06:41 | NUR ---
MS RN NOTES PATIENT IN BED, AWAKE, ALERT AND ORIENTED X3. ABLE TO MAKE NEEDS KNOWN. STABLE ON ROOM AIR. CONTINENT AND USES BSC, AMBULATORY WITH WALKER, WITH FERNANDA PICC LINE AND RIGHT INTRA JUGULAR CATHETER FOR HEMODIALYSIS. PT HAD ONE EPISODE OF DIARRHEA DURING THE SHIFT.SAFETY PRECAUTIONS IN PLACED. BED LOCKED ON LOWEST POSITION, SIDE RAILS UPX2, CALL LIGHT AND TABLE WITHIN EASY REACH. WILL ENDORSE TO DAY SHIFT.
--- NOTE | 2021-07-04 07:15 | NUR ---
MS/RN OPENING NOTES RECEIVED PATIENT IN BED, AWAKE, ALERT AND ORIENTED X3. ABLE TO MAKE NEEDS KNOWN. BREATHING EVENLY AND NONLABORED. STABLE ON ROOM AIR. PATIENT IS NOTED WITH FERNANDA PICC LINE AND RIGHT INTRA JUGULAR CATHETER FOR HEMODIALYSIS. SAFETY PRECAUTIONS IN PLACED. BED LOCKED ON LOWEST POSITION, SIDE RAILS UPX2, CALL LIGHT AND TABLE WITHIN EASY REACH. WILL CONTINUE TO MONITOR PATIENT.
[2021-07-04 08:00] VITALS: BP 154/98
[2021-07-04] MEDS: ASPIRIN 81 MG TAB.CHEW PO SCH (08:24)
[2021-07-04] MEDS: AMLODIPINE BESYLATE 5 MG TABLET PO SCH (08:24)
[2021-07-04] MEDS: POTASSIUM CHLORIDE 20 MEQ POWDER PACKET PO SCH (08:24)
[2021-07-04] MEDS: MINERAL OIL/PETROLATUM,WHITE 120 GM JAR TP PRN (08:25)
[2021-07-04] MEDS: METOCLOPRAMIDE HCL 10 MG/10 ML UDC PO SCH ×2 (08:25→21:36)
[2021-07-04] MEDS: LACTOBACILLUS RHAMNOSUS GG 1 EACH CAP.SPRINK PO SCH ×2 (08:25→16:05)
[2021-07-04] MEDS: NEPRO VAN 237 ML CAN PO SCH ×3 (08:25→16:05)
[2021-07-04] MEDS: MINERAL OIL/PETROLATUM,WHITE 120 GM JAR TP SCH ×2 (08:28→16:06)
--- NOTE | 2021-07-04 11:21 | NUR ---
RN NOTE RECEIVED CALL FROM LABORATORY REGARDING CRITICAL LAB VALUE POTASSIUM 6.6. NOTIFIED, WITH NEW ORDER FOR D50 AND 10 UNITS OF INSULIN IVP
[2021-07-04] MEDS ORDERED: INSULIN REGULAR, HUMAN 100 UNIT/ML 10 ML VIAL IV ONE (11:30)
[2021-07-04] MEDS ORDERED: DEXTROSE 50%-WATER 50 ML DISP.SYRIN IVP ONE (11:30)
[2021-07-04 16:00] VITALS: BP 142/88
--- NOTE | 2021-07-04 18:30 | NUR ---
MS/RN CLOSING NOTES: PATIENT IN BED, AWAKE, ALERT AND ORIENTED X3. ABLE TO MAKE NEEDS KNOWN. STABLE ON ROOM AIR. CONTINENT AND USES BSC, AMBULATORY WITH WALKER, PATIENT NOTED WITH FERNANDA PICC LINE AND RIGHT INTRA JUGULAR CATHETER FOR HEMODIALYSIS, BOTH PATENT AND INTACT. ALL MEDICATIONS GIVEN ORDERED. PATIENT IN STABLE CONDITION SAFETY PRECAUTIONS IN PLACED. BED LOCKED ON LOWEST POSITION, SIDE RAILS UPX2, CALL LIGHT AND TABLE WITHIN EASY REACH. WILL ENDORSE TO ONCOMING SHIFT
--- NOTE | 2021-07-04 19:50 | NUR ---
MS/RN OPENING NOTE RECEIVED PATIENT SLEEPING IN BED. ALERT AND ORIENTED X 3. ABLE TO MAKE NEEDS KNOWN. DENIES PAIN AT THIS TIME. CONTINUES ON ROOM AIR WITH NO S/SX OF RESPIRATORY DISTRESS NOTED. IV ACCESS TO RIGHT UPPER ARM PICC LINE INTACT, PATENT AND SALINE LOCKED. HD ACCESS TO RIGHT IJ CATHETER INTACT. DRESSING IS CLEAN, DRY AND INTACT. CALL LIGHT WITHIN REACH. ASPIRATION, FALL AND SAFETY PRECAUTIONS MAINTAINED. WILL CONTINUE TO MONITOR.
[2021-07-04 20:00] VITALS: BP 150/92
[2021-07-05 07:00] LABS: BASOPHILS # (AUTO) 0.1 K/uL (0.0-0.2); BASOPHILS % (AUTO) 1.2 % (0.0-2.0); EOSINOPHILS % (AUTO) 2.2 % (0.0-6.0); HEMATOCRIT 24 % (39-51); HEMOGLOBIN 8.3 g/dL (13.5-17.5); LYMPHOCYTES % (AUTO) 11.2 % (20.0-44.0); MEAN CORPUSCULAR HGB CONC 35 g/dl (31.0-36.0); MEAN CORPUSCULAR VOLUME 93 fL (80-96); MONOCYTES # (AUTO) 1.2 K/uL (0.1-1.30); NEUTROPHILS # (AUTO) 6.4 K/uL (1.8-8.9); NEUTROPHILS % (AUTO) 72.4 % (43.0-81.0); PLATELET COUNT (AUTO) 630 K/uL (150-450); RED BLOOD CELL COUNT(AUTO) 2.58 MIL/uL (4.5-6.0); WHITE BLOOD COUNT (AUTO) 8.9 K/uL (4.3-11.0)
--- NOTE | 2021-07-05 07:05 | NUR ---
MS/RN OPENING NOTES RECEIVED PATIENT IN BED, AWAKE, ALERT AND ORIENTED X3. ABLE TO MAKE NEEDS KNOWN. BREATHING EVENLY AND NONLABORED. STABLE ON ROOM AIR. PATIENT IS NOTED WITH FERNANDA PICC LINE AND RIGHT INTRA JUGULAR CATHETER FOR HEMODIALYSIS PATENT AND INTACT. SAFETY PRECAUTIONS IN PLACED. BED LOCKED ON LOWEST POSITION, SIDE RAILS UPX2, CALL LIGHT AND TABLE WITHIN EASY REACH. WILL CONTINUE TO MONITOR PATIENT.
[2021-07-05 07:26] LABS: CALCIUM, SERUM 8.5 mg/dL (8.5-10.1); MAGNESIUM 2.7 mg/dL (1.8-2.4)
[2021-07-05 07:39] LABS: CREATININE 16.8 mg/dL (0.6-1.3); POTASSIUM 6.5 mmol/L (3.5-5.1)
[2021-07-05 07:40] LABS: PHOSPHORUS 12.3 mg/dL (2.5-4.9)
[2021-07-05 08:15] VITALS: BP 160/92
--- NOTE | 2021-07-05 08:15 | NUR ---
RN NOTE CRITICAL VALUES REPORTED TO MD POTASSIUM 6.5, BUN 97 CREATININE 16.8 AND PHOS 12.3. MD HAVE NEW ORDERS AND POTASSIUM CHLORIDE MEDICATION HELD DUE TO HIGH POTASSIUM PER MD WILL CONTINUE TO MONITOR
[2021-07-05] MEDS: ASPIRIN 81 MG TAB.CHEW PO SCH (08:21)
[2021-07-05] MEDS: LACTOBACILLUS RHAMNOSUS GG 1 EACH CAP.SPRINK PO SCH ×2 (08:21→16:05)
[2021-07-05] MEDS: AMLODIPINE BESYLATE 5 MG TABLET PO SCH (08:21)
[2021-07-05] MEDS: NEPRO VAN 237 ML CAN PO SCH ×3 (08:22→16:06)
[2021-07-05] MEDS: MINERAL OIL/PETROLATUM,WHITE 120 GM JAR TP SCH ×2 (08:22→16:06)
[2021-07-05] MEDS: METOCLOPRAMIDE HCL 10 MG/10 ML UDC PO SCH ×2 (08:22→20:39)
[2021-07-05] MEDS: POTASSIUM CHLORIDE 20 MEQ POWDER PACKET PO SCH (08:22)
[2021-07-05] MEDS ORDERED: SODIUM POLYSTYRENE SULF. PWD 15 GM UDC PO STA (10:24)
[2021-07-05] MEDS: CALCIUM CARBONATE 500 MG TAB.CHEW PO SCH ×2 (12:11→17:02)
[2021-07-05 15:26] VITALS: BP 158/86
--- NOTE | 2021-07-05 15:26 | NUR ---
RN NOTE TRANSFUSION ORDERED, PATIENT EDUCATED ON TRANSFUSION REACTIONS, EXPLAINED RISK AND BENEFITS, PATIENT AGREED. BLOOD PICKED UP FROM LABORATORY AND WILL BE GIVEN BY DIALYSIS NURSE, PATIENTS VITALS STABLE AND DOCUMENTED. WILL CONTINUE TO MONITOR
[2021-07-05 15:40] VITALS: BP 151/82
[2021-07-05 15:46] VITALS: BP 169/79
--- NOTE | 2021-07-05 15:47 | NUR ---
RN NOTE DIALYSIS NURSE COMPLETED BLOOD TRANSFUSION. PATIENT TOLERATED WELL, NO TRANSFUSION REACTIONS NOTED. WILL CONTINUE TO MONITOR
--- NOTE | 2021-07-05 18:18 | NUR ---
MS/RN CLOSING NOTES: PATIENT IN BED, AWAKE, ALERT AND ORIENTED X3. ABLE TO MAKE NEEDS KNOWN. STABLE ON ROOM AIR. CONTINENT AND USES BSC, AMBULATORY WITH WALKER, PATIENT NOTED WITH FERNANDA PICC LINE AND RIGHT INTRA JUGULAR CATHETER FOR HEMODIALYSIS, BOTH PATENT AND INTACT. PATIENT HAD DAILYSIS DURING SHIFT AND POST TRANSFUSION 1 PRBC, DIALYSIS REMOVED 1400ML. TOLERATED WELL. ALL MEDICATIONS GIVEN ORDERED. PATIENT IN STABLE CONDITION SAFETY PRECAUTIONS IN PLACED. BED LOCKED ON LOWEST POSITION, SIDE RAILS UPX2, CALL LIGHT AND TABLE WITHIN EASY REACH. WILL ENDORSE TO ONCOMING SHIFT
--- NOTE | 2021-07-05 19:40 | NUR ---
MS/RN OPENING NOTE RECEIVED PATIENT RESTING IN BED. AWAKE, ALERT AND ORIENTED X 3. ABLE TO MAKE NEEDS KNOWN. DENIES PAIN AT THIS TIME. CONTINUES ON ROOM AIR WITH NO S/SX OF RESPIRATORY DISTRESS NOTED. IV ACCESS TO RIGHT UPPER ARM PICC LINE INTACT, PATENT AND SALINE LOCKED. HD ACCESS TO RIGHT IJ CATHETER INTACT. DRESSING IS CLEAN, DRY AND INTACT. CALL LIGHT WITHIN REACH. ASPIRATION, FALL AND SAFETY PRECAUTIONS MAINTAINED. WILL CONTINUE TO MONITOR.
[2021-07-05 20:00] VITALS: BP 156/84
[2021-07-06 06:42] LABS: BASOPHILS # (AUTO) 0.1 K/uL (0.0-0.2); BASOPHILS % (AUTO) 1.2 % (0.0-2.0); EOSINOPHILS % (AUTO) 1.4 % (0.0-6.0); HEMATOCRIT 26 % (39-51); HEMOGLOBIN 9.1 g/dL (13.5-17.5); LYMPHOCYTES # (AUTO) 1.1 K/uL (0.8-4.8); LYMPHOCYTES % (AUTO) 10.2 % (20.0-44.0); MEAN CORPUSCULAR HGB CONC 35 g/dl (31.0-36.0); MEAN CORPUSCULAR VOLUME 92 fL (80-96); MONOCYTES # (AUTO) 1.4 K/uL (0.1-1.30); MONOCYTES % (AUTO) 13.4 % (2.0-12.0); NEUTROPHILS # (AUTO) 7.6 K/uL (1.8-8.9); NEUTROPHILS % (AUTO) 73.8 % (43.0-81.0); PLATELET COUNT (AUTO) 522 K/uL (150-450); RED BLOOD CELL COUNT(AUTO) 2.83 MIL/uL (4.5-6.0); WHITE BLOOD COUNT (AUTO) 10.3 K/uL (4.3-11.0)
[2021-07-06 07:22] LABS: CALCIUM, SERUM 7.9 mg/dL (8.5-10.1); POTASSIUM 5.3 mmol/L (3.5-5.1)
--- NOTE | 2021-07-06 07:28 | NUR ---
MS/RN CLOSING NOTE PATIENT CURRENTLY RESTING IN BED. AWAKE, ALERT AND ORIENTED X 3. ABLE TO MAKE NEEDS KNOWN. DENIES PAIN AT THIS TIME. CONTINUES ON ROOM AIR WITH NO S/SX OF RESPIRATORY DISTRESS NOTED. IV ACCESS TO RIGHT UPPER ARM PICC LINE INTACT, PATENT AND SALINE LOCKED. HD ACCESS TO RIGHT IJ CATHETER INTACT. DRESSING IS CLEAN, DRY AND INTACT. CALL LIGHT WITHIN REACH. ASPIRATION, FALL AND SAFETY PRECAUTIONS MAINTAINED. WILL ENDORSE PLAN OF CARE TO ONCOMING SHIFT.
[2021-07-06 07:55] LABS: CREATININE 10.8 mg/dL (0.6-1.3)
[2021-07-06 08:00] VITALS: BP 140/83
[2021-07-06] MEDS: NEPRO VAN 237 ML CAN PO SCH ×3 (08:37→17:28)
[2021-07-06] MEDS: METOCLOPRAMIDE HCL 10 MG/10 ML UDC PO SCH ×2 (08:38→23:00)
[2021-07-06] MEDS: LACTOBACILLUS RHAMNOSUS GG 1 EACH CAP.SPRINK PO SCH ×2 (08:38→17:28)
[2021-07-06] MEDS: ASPIRIN 81 MG TAB.CHEW PO SCH (08:38)
[2021-07-06] MEDS: CALCIUM CARBONATE 500 MG TAB.CHEW PO SCH ×3 (08:38→17:28)
[2021-07-06] MEDS: MINERAL OIL/PETROLATUM,WHITE 120 GM JAR TP SCH ×2 (08:39→17:28)
[2021-07-06] MEDS: AMLODIPINE BESYLATE 5 MG TABLET PO SCH (08:39)
[2021-07-06] MEDS ORDERED: EPOETIN ALFA-EPBX 10,000 UNIT/ML VIAL SQ ONE (15:00)
[2021-07-06 16:00] VITALS: BP 138/76
--- NOTE | 2021-07-06 19:58 | NUR ---
RN OPENING RECEIVED PATIENT IN BED. A/OX3. NO S/S OF APPARENT DISTRESS IN ROOM AIR. NO C/O PAIN AT THIS TIME. NO FLUIDS RUNNING AT THIS TIME. SAFETY IN PLACE. WILL CONTINUE TO MONITOR.
[2021-07-06 20:00] VITALS: BP 167/93
--- NOTE | 2021-07-06 20:40 | NUR ---
MS RN NOTES PATIENT CURRENTLY GETTING HEMODIALYSIS. PER HD RN THEY STARTED AT 1930.
--- NOTE | 2021-07-06 21:30 | NUR ---
MS RN NOTES HEMODIALYSIS FINISHED AT THIS TIME. 2000 CC OUT PER HD RN.
--- NOTE | 2021-07-06 23:20 | NUR ---
MS RN NOTES REGLAN SOLN. ADMINISTERED LATE BECAUSE OF ON-GOING HEMODIALYSIS.
[2021-07-06] MEDS: ACETAMINOPHEN 325 MG TABLET PO PRN (23:22)
--- NOTE | 2021-07-06 23:30 | NUR ---
MS RN NOTES PATIENT HAVING FEVER. TEMPERATURE 100.8 AT THIS TIME. STARTED ON ICE PACKS AND GIVEN PRN TYLENOL. WILL CONTINUE TO MONITOR.
--- NOTE | 2021-07-07 01:05 | NUR ---
MS RN NOTES RECHECKED TEMPERATURE. STILL HIGH 110.3 f[address]S IN PLACE. WILL CONTINUE TO MONITOR.
--- NOTE | 2021-07-07 05:12 | NUR ---
MS RN NOTE RECHECKED PATIENT'S TEMPERATURE, NOW DOWN TO 99.0. STILL CONTINUING WITH COOLING MEASURES. WILL CONTINUE TO MONITOR.
--- NOTE | 2021-07-07 06:44 | NUR ---
MS RN CLOSING NOTE PATIENT IN BED WITH EYES CLOSED, EASY TO AROUSE. A/OX3. NO S/S OF APPARENT DISTRESS. NO C/O PAIN AT THIS TIME. FEVER MANAGED WITH MEDICATION AND COOLING MEASURES. NO FLUIDS RUNNING AT THIS TIME. HD LAST NIGHT 1999 CC OUT. ALL NEEDS ATTENDED. ALL SCHED MEDICATION ADMINISTERED. SAFETY KEPT IN PLACE THE WHOLE SHIFT. NO SIGNIFICANT CHANGE SINCE LAST SHIFT. WILL ENDORSE CARE TO MORNING SHIFT RN.
[2021-07-07 06:45] LABS: CALCIUM, SERUM 8.3 mg/dL (8.5-10.1); POTASSIUM 5.1 mmol/L (3.5-5.1)
[2021-07-07 06:46] LABS: CREATININE 9.5 mg/dL (0.6-1.3)
--- NOTE | 2021-07-07 07:30 | NUR ---
RN-NOTES RECEIVED PATIENT SLEEPING WITH BREATHING EVEN AND NONLABORED EASILY AROUSED. PATIENT FERNANDA PICC LINE INTACT NO S/S OF COMPLICATION NOTED AT THE SITE AT THIS TIME. PATIENT A/O X3 ABLE TO AMBULATE IN THE BATHROOM. ENCOURAGED TO REPOSITION 2 HR TO PREVENT FROM DEVELOPING SORES. PATIENT VERBALIZED UNDERSTANDING.
[2021-07-07 08:00] VITALS: BP 124/76
[2021-07-07] MEDS: CALCIUM CARBONATE 500 MG TAB.CHEW PO SCH ×3 (08:00→17:11)
[2021-07-07] MEDS: METOCLOPRAMIDE HCL 10 MG/10 ML UDC PO SCH ×2 (10:01→21:33)
[2021-07-07] MEDS: LACTOBACILLUS RHAMNOSUS GG 1 EACH CAP.SPRINK PO SCH ×2 (10:01→17:11)
[2021-07-07] MEDS: ASPIRIN 81 MG TAB.CHEW PO SCH (10:01)
[2021-07-07] MEDS: AMLODIPINE BESYLATE 5 MG TABLET PO SCH (10:02)
[2021-07-07] MEDS: NEPRO VAN 237 ML CAN PO SCH ×3 (10:02→17:11)
[2021-07-07] MEDS: MINERAL OIL/PETROLATUM,WHITE 120 GM JAR TP SCH ×2 (11:06→17:13)
[2021-07-07 16:00] VITALS: BP 103/72
--- NOTE | 2021-07-07 18:14 | NUR ---
RN-NOTES PATIENT LYING IN BED INTERMITTENTLY SLEEPING ,NO ACUTE DISTRESS NOTED. PATIENT FERNANDA PICC LINE INTACT NO S/S OF COMPLICATION NOTED AT THE SITE AT THIS TIME. PATIENT A/O X3 ABLE TO AMBULATE IN THE BATHROOM. ENCOURAGED TO REPOSITION 2 HR TO PREVENT FROM DEVELOPING SORES. PATIENT VERBALIZED UNDERSTANDING. CALL LIGHT WITHIN REACH.ALL NEEDS ATTENDED AND ANTICIPATED. WILL ENDORSE TO INCOMING NURSE FOR CONTINUITY OF CARE..
--- NOTE | 2021-07-07 19:29 | NUR ---
MS RN OPENING NOTE PATIENT A/OX3; ABLE TO MAKE NEEDS KNOWN. TOLERATING ROOM AIR WELL WITH NO SOB. DENIES PAIN OR DISCOMFORT AT THIS TIME. RIJ HD CATH DRESSING C/D/I. FERNANDA PICCLINE S/L; PATENT AND INTACT. SAFETY MEASURES IN PLACE: BED IN LOWEST LOCKED POSITION, SIDE RAILS UPX2, CALL LIGHT WITHIN EASY REACH, BED ALARMS ON. PATIENT IN STABLE CONDITION; WILL CONT. PLAN OF CARE.
[2021-07-07 20:00] VITALS: BP 164/90
[2021-07-07] MEDS: ACETAMINOPHEN 325 MG TABLET PO PRN (23:43)
--- NOTE | 2021-07-07 23:43 | NUR ---
MS RN NOTE - FEVER PATIENT NOTED WITH TEMP OF 101.0F. ADMINISTERED TYLENOL ORDERED AND INITIATED COOLING MEASURES. PATIENT DENIES FEELING HOT, COLD, OR CHILLS. PATIENT IS COMFORTABLE AT THIS TIME. WILL REASSESS TEMP IN 30 MINUTES. PATIENT WILL BE NPO MIDNIGHT; VERBALIZED UNDERSTANDING.
[2021-07-08] MEDS: ACETAMINOPHEN 325 MG TABLET PO PRN ×2 (06:26→21:07)
--- NOTE | 2021-07-08 06:26 | NUR ---
MS RN NOTE - FEVER PATIENT NOTED WITH TEMP OF 100.9F. ADMINISTERED TYLENOL ORDERED AND CONTINUED COOLING MEASURES. PATIENT DENIES FEELING HOT, COLD, OR CHILLS. PATIENT IS COMFORTABLE AT THIS TIME. WILL REASSESS TEMP IN 30 MINUTES.
--- NOTE | 2021-07-08 06:43 | NUR ---
MS RN CLOSING NOTE PATIENT A/OX3; ABLE TO MAKE NEEDS KNOWN. TOLERATING ROOM AIR WELL WITH NO SOB. DENIES PAIN OR DISCOMFORT AT THIS TIME. RIJ HD CATH DRESSING C/D/I. FERNANDA PICCLINE S/L; PATENT AND INTACT. MAINTAINED ON NPO DIET. SAFETY MEASURES IN PLACE: BED IN LOWEST LOCKED POSITION, SIDE RAILS UPX2, CALL LIGHT WITHIN EASY REACH, BED ALARMS ON. PATIENT IN STABLE CONDITION; WILL ENDORSE PLAN OF CARE TO ONCOMING MORNING RN.
[2021-07-08 07:14] LABS: BASOPHILS # (AUTO) 0.3 K/uL (0.0-0.2); BASOPHILS % (AUTO) 2.6 % (0.0-2.0); EOSINOPHILS % (AUTO) 3.8 % (0.0-6.0); HEMATOCRIT 27 % (39-51); HEMOGLOBIN 9.3 g/dL (13.5-17.5); LYMPHOCYTES # (AUTO) 1.2 K/uL (0.8-4.8); LYMPHOCYTES % (AUTO) 11.1 % (20.0-44.0); MEAN CORPUSCULAR HGB CONC 35 g/dl (31.0-36.0); MEAN CORPUSCULAR VOLUME 91 fL (80-96); MONOCYTES # (AUTO) 1.4 K/uL (0.1-1.30); MONOCYTES % (AUTO) 12.9 % (2.0-12.0); NEUTROPHILS # (AUTO) 7.7 K/uL (1.8-8.9); NEUTROPHILS % (AUTO) 69.6 % (43.0-81.0); PLATELET COUNT (AUTO) 463 K/uL (150-450); RED BLOOD CELL COUNT(AUTO) 2.94 MIL/uL (4.5-6.0); WHITE BLOOD COUNT (AUTO) 11.1 K/uL (4.3-11.0)
--- NOTE | 2021-07-08 07:17 | NUR ---
MS RN OPENING NOTE PT ASLEEP ON BED BUT WAKES UP TO CALL, A/O X4, ABLE TO VERBALIZE ALL NEEDS. PATIENT DENIES PAIN OR DISCOMFORT AT THIS TIME. WITH PICC LINE ON FERNANDA PATENT AND INTACT. WITH IJ CATH ON THE RIGHT NECK WITH DRESSING, DRY AND INTACT. MAINTAINED ON NPO FOR PENDING PROCEDURE TODAY AT 1600H. SAFETY MEASURES IN PLACE, BED IN LOWEST LOCKED AND AT LOWEST POSITION, SIDE RAILS UP X2, CALL LIGHT AND TABLE WITHIN REACH. WILL CONTINUE TO MONITOR PATIENT.
[2021-07-08 07:44] LABS: CALCIUM, SERUM 8.3 mg/dL (8.5-10.1); MAGNESIUM 2.2 mg/dL (1.8-2.4)
[2021-07-08 07:57] LABS: CREATININE 12.7 mg/dL (0.6-1.3)
[2021-07-08 07:59] LABS: PHOSPHORUS 9.8 mg/dL (2.5-4.9)
[2021-07-08] MEDS: NEPRO VAN 237 ML CAN PO SCH ×3 (08:00→17:00)
[2021-07-08] MEDS: ASPIRIN 81 MG TAB.CHEW PO SCH (08:55)
[2021-07-08] MEDS: LACTOBACILLUS RHAMNOSUS GG 1 EACH CAP.SPRINK PO SCH ×2 (08:58→17:00)
[2021-07-08] MEDS: CALCIUM CARBONATE 500 MG TAB.CHEW PO SCH ×3 (08:58→18:26)
[2021-07-08] MEDS: METOCLOPRAMIDE HCL 10 MG/10 ML UDC PO SCH ×2 (08:58→21:08)
[2021-07-08] MEDS: AMLODIPINE BESYLATE 5 MG TABLET PO SCH (08:59)
[2021-07-08] MEDS: MINERAL OIL/PETROLATUM,WHITE 120 GM JAR TP SCH ×2 (09:06→17:00)
[2021-07-08] MEDS: ONDANSETRON HCL/PF 4 MG/2 ML VIAL IVP PRN (09:11)
[2021-07-08 09:40] VITALS: BP 128/68
[2021-07-08] MEDS ORDERED: LIDOCAINE 1% INJ 50 ML MDV IJ ONE (14:19)
[2021-07-08] MEDS ORDERED: BUPIVACAINE MPF 0.5% W/EPI INJ 30 ML VIAL ONE (14:19)
--- NOTE | 2021-07-08 15:35 | NUR ---
MS RN NOTE PATIENT PICKED UP 2 OR NURSES FOR SCHEDULED SURGERY. IN STABLE CONDITION.
[2021-07-08 16:16] VITALS: BP 128/68
[2021-07-08] MEDS ORDERED: MIDAZOLAM HCL 2 MG/2ML VIAL ONE (16:31)
[2021-07-08] MEDS ORDERED: PROPOFOL 20 ML IV ONE (16:31)
[2021-07-08] MEDS ORDERED: HEPARIN SODIUM, PORCINE 1,000 UNIT/ML VIAL ONE (16:52)
--- NOTE | 2021-07-08 18:30 | NUR ---
MS RN NOTE PATIENT BACK FROM SURGERY WITH PERMACATH ON THE RIGHT CHEST. PER OR NURSE IT CAN BE USED FOR DIALYSIS NOW. COMFORT MEASURES PROVIDED. VS WNL. NOT IN DISTRESS. WILL RESUME ALL MEDS AND DIET. WILL CONTINUE TO MONITOR PATIENT.
--- NOTE | 2021-07-08 19:00 | NUR ---
MS RN CLOSING NOTE PT ON BED A/O X3, ABLE TO VERBALIZE ALL NEEDS. PATIENT DENIES PAIN OR DISCOMFORT AT THIS TIME. WITH PICC LINE ON FERNANDA PATENT AND INTACT. WITH PERMACATH ON RIGHT CHEST WITH DRESSING, DRY AND INTACT. SAFETY MEASURES IN PLACE, BED IN LOWEST LOCKED AND AT LOWEST POSITION, SIDE RAILS UP X2, CALL LIGHT AND TABLE WITHIN REACH. WILL CENDORSE TO NEXT SHIFT FOR CONTINUITY OF CARE.
--- NOTE | 2021-07-08 19:10 | NUR ---
MS RN OPENING NOTE PATIENT A/OX3; ABLE TO MAKE NEEDS KNOWN. TOLERATING ROOM AIR WELL WITH NO SOB. DENIES PAIN OR DISCOMFORT AT THIS TIME. RIJ HD CATH REMOVED AND DRESSING C/D/I. FERNANDA PICCLINE S/L; PATENT AND INTACT. RCW HD PERMACATH KEPT INTACT; DRESSING C/D/I. SAFETY MEASURES IN PLACE: BED IN LOWEST LOCKED POSITION, SIDE RAILS UPX2, CALL LIGHT WITHIN EASY REACH, BED ALARMS ON. PATIENT IN STABLE CONDITION; WILL CONT. PLAN OF CARE.
[2021-07-08 20:00] VITALS: BP 140/98
--- NOTE | 2021-07-08 20:30 | NUR ---
MS RN NOTE - HD DIALYSIS NURSE AT BED SIDE INITIATED HS WITH RCW PERMACATH. NO A/R, VSS. BP 132/92, HR 86. WILL CONTINUE TO MONITOR.
--- NOTE | 2021-07-08 21:07 | NUR ---
MS RN NOTE - TEMP PT NOTED WITH TEMP OF 102.9F. PATIENT DENIES PAIN, CHILLS, OR DIAPHORESIS. ADMINISTERED TYLENOL ORDERED. WILL CONTINUE TO REASSESS TEMP THROUGHOUT THE SHIFT.
--- NOTE | 2021-07-08 22:45 | NUR ---
MS RN NOTE - HD PATIENT TOLERATED HD WITH 2600ML OUTPUT. NO A/R, N/V/D NOTED. VSS WNL. BP 136/82, HR 79. DRESSING KEPT C/D/I. ROSELINE DIALYSIS NURSE CHANGED MIDLINE DRESSING; KEPT C/D/I.
[2021-07-09] MEDS: ANCEF 1 GM/50 ML D5W IV SCH ×2 (00:35→09:08)
--- NOTE | 2021-07-09 06:10 | NUR ---
MS RN CLOSING NOTE PATIENT A/OX3; ABLE TO MAKE NEEDS KNOWN. TOLERATING ROOM AIR WELL WITH NO SOB. DENIES PAIN OR DISCOMFORT AT THIS TIME. AFEBRILE; SKIN WARM TO TOUCH. RIJ HD CATH REMOVED AND DRESSING C/D/I. FERNANDA PICCLINE S/L; PATENT AND INTACT. RCW HD PERMACATH KEPT INTACT; DRESSING C/D/I. SAFETY MEASURES IN PLACE: BED IN LOWEST LOCKED POSITION, SIDE RAILS UPX2, CALL LIGHT WITHIN EASY REACH, BED ALARMS ON. PATIENT IN STABLE CONDITION; WILL ENDORSE PLAN OF CARE TO ONCOMING MORNING RN.
--- NOTE | 2021-07-09 07:10 | NUR ---
MS RN OPENING NOTE PT ASLEEP ON BED BUT WAKES UP TO CALL, A/O X3, ABLE TO VERBALIZE ALL NEEDS. PATIENT DENIES PAIN OR DISCOMFORT AT THIS TIME. WITH PICC LINE ON FERNANDA PATENT AND INTACT. WITH RIGHT CHEST PERMACATH WITH DRESSING, DRY AND INTACT. SAFETY MEASURES IN PLACE, BED IN LOWEST LOCKED AND AT LOWEST POSITION, SIDE RAILS UP X2, CALL LIGHT AND TABLE WITHIN REACH. WILL CONTINUE TO MONITOR PATIENT.
[2021-07-09 08:00] VITALS: BP 147/87
[2021-07-09 08:06] LABS: IMMUNOGLOBULIN A, SERUM 131 mg/dL (90-386); IMMUNOGLOBULIN G, SERUM 816 mg/dL (603-1613); IMMUNOGLOBULIN M, SERUM 71 mg/dL (20-172)
[2021-07-09] MEDS: ASPIRIN 81 MG TAB.CHEW PO SCH (09:07)
[2021-07-09] MEDS: LACTOBACILLUS RHAMNOSUS GG 1 EACH CAP.SPRINK PO SCH ×2 (09:07→18:05)
[2021-07-09] MEDS: METOCLOPRAMIDE HCL 10 MG/10 ML UDC PO SCH ×2 (09:07→20:15)
[2021-07-09] MEDS: AMLODIPINE BESYLATE 5 MG TABLET PO SCH (09:08)
[2021-07-09] MEDS: NEPRO VAN 237 ML CAN PO SCH ×3 (09:10→18:09)
[2021-07-09] MEDS: MINERAL OIL/PETROLATUM,WHITE 120 GM JAR TP SCH ×2 (09:11→18:06)
[2021-07-09] MEDS: CALCIUM CARBONATE 500 MG TAB.CHEW PO SCH ×3 (09:30→18:05)
[2021-07-09 11:46] LABS: CALCIUM, SERUM 8.5 mg/dL (8.5-10.1); CREATININE 9.7 mg/dL (0.6-1.3); POTASSIUM 5.3 mmol/L (3.5-5.1)
[2021-07-09 12:01] LABS: BASOPHILS # (AUTO) 0.3 K/uL (0.0-0.2); BASOPHILS % (AUTO) 2.1 % (0.0-2.0); EOSINOPHILS % (AUTO) 1.7 % (0.0-6.0); HEMATOCRIT 28 % (39-51); HEMOGLOBIN 9.6 g/dL (13.5-17.5); LYMPHOCYTES # (AUTO) 1.2 K/uL (0.8-4.8); LYMPHOCYTES % (AUTO) 9.8 % (20.0-44.0); MEAN CORPUSCULAR HGB CONC 34 g/dl (31.0-36.0); MEAN CORPUSCULAR VOLUME 94 fL (80-96); MONOCYTES # (AUTO) 1.4 K/uL (0.1-1.30); MONOCYTES % (AUTO) 11.9 % (2.0-12.0); NEUTROPHILS # (AUTO) 8.8 K/uL (1.8-8.9); NEUTROPHILS % (AUTO) 74.5 % (43.0-81.0); PLATELET COUNT (AUTO) 481 K/uL (150-450); RED BLOOD CELL COUNT(AUTO) 3.02 MIL/uL (4.5-6.0); WHITE BLOOD COUNT (AUTO) 11.8 K/uL (4.3-11.0)
[2021-07-09 16:00] VITALS: BP 138/83
--- NOTE | 2021-07-09 19:00 | NUR ---
MS RN CLOSING NOTE PT ASLEEP ON BED BUT WAKES UP TO CALL, A/O X3, ABLE TO VERBALIZE ALL NEEDS. PATIENT DENIES PAIN OR DISCOMFORT AT THIS TIME. WITH PICC LINE ON FERNANDA PATENT AND INTACT. WITH RIGHT CHEST PERMACATH WITH DRESSING, DRY AND INTACT. SAFETY MEASURES IN PLACE, BED IN LOWEST LOCKED AND AT LOWEST POSITION, SIDE RAILS UP X2, CALL LIGHT AND TABLE WITHIN REACH. WILL ENDORSE PATIENT FOR CONTINUITY OF CARE.
--- NOTE | 2021-07-09 19:30 | NUR ---
MS RN OPENING NOTE RECEIVED PT AWAKE IN BED. A/O X3, ABLE TO MAKE NEEDS KNOWN. PT IS STABLE ON ROOM AIR. NO SOB OR S/S OF RESPIRATORY DISTRESS NOTED. PT DENIES PAIN OR DISCOMFORT AT THIS TIME. IV ACCESS IN FERNANDA PICC LINE, INTACT AND PATENT. PT NOTED WITH RIGHT CHEST PERMACATH WITH DRESSING, C/D/I. SAFETY PRECAUTIONS MAINTAINED. BED IN LOWEST LOCKED POSITION, HOB ELEVATED, SIDE RAILS UP X2. CALL LIGHT AND TABLE WITHIN REACH. WILL CONTINUE WITH PLAN OF CARE.
[2021-07-09 20:00] VITALS: BP 146/85
[2021-07-09 20:12] LABS: BILIRUBIN,URINE SMALL (NEGATIVE); COLOR,URINE AMBER (YELLOW); LEUKOCYTE ESTERASE ,URINE TRACE (NEGATIVE); NITRITE, URINE NEGATIVE (NEGATIVE); PH,URINE 8.5 (5.0-8.0); PROTEIN,URINE >=300 mg/dl (NEGATIVE); UGLUCOSE NEGATIVE (NEGATIVE); UROBILINOGEN,URINE 0.2 EU/dL (0.2)
[2021-07-09 20:18] LABS: BACTERIA,URINE 2+ /HPF (None Seen); RBC,URINE 51-80 /HPF (0-2); SQUAMOUS EPITHELIAL CELL,UR Few /HPF (None Seen); WBC,URINE TOO NUMEROUS TO COUN /HPF (0-3)
[2021-07-09 20:19] LABS: HYALINE CASTS, URINE Few /LPF (None Seen)
--- NOTE | 2021-07-10 06:25 | NUR ---
MS RN CLOSING NOTE PT IS AWAKE IN BED. A/O X3, ABLE TO MAKE NEEDS KNOWN. PT IS STABLE ON ROOM AIR. NO SOB OR S/S OF RESPIRATORY DISTRESS NOTED. PT DENIES PAIN OR DISCOMFORT AT THIS TIME. IV ACCESS IS INTACT, PATENT, AND FLUSHING WELL. PT NOTED WITH RIGHT CHEST PERMACATH WITH DRESSING, C/D/I. ALL NEEDS HAVE BEEN MET. SAFETY PRECAUTIONS MAINTAINED AT ALL TIMES. BED IN LOWEST LOCKED POSITION, HOB ELEVATED, SIDE RAILS UP X2. CALL LIGHT AND TABLE WITHIN REACH. WILL ENDORSE TO ONCOMING NURSE FOR YUNIOR.
[2021-07-10 07:24] LABS: BASOPHILS # (AUTO) 0.2 K/uL (0.0-0.2); BASOPHILS % (AUTO) 1.8 % (0.0-2.0); EOSINOPHILS % (AUTO) 5.8 % (0.0-6.0); HEMATOCRIT 26 % (39-51); HEMOGLOBIN 9.1 g/dL (13.5-17.5); LYMPHOCYTES # (AUTO) 1.3 K/uL (0.8-4.8); LYMPHOCYTES % (AUTO) 11.7 % (20.0-44.0); MEAN CORPUSCULAR HGB CONC 35 g/dl (31.0-36.0); MEAN CORPUSCULAR VOLUME 92 fL (80-96); MONOCYTES # (AUTO) 1.3 K/uL (0.1-1.30); MONOCYTES % (AUTO) 12.3 % (2.0-12.0); NEUTROPHILS # (AUTO) 7.4 K/uL (1.8-8.9); NEUTROPHILS % (AUTO) 68.4 % (43.0-81.0); PLATELET COUNT (AUTO) 416 K/uL (150-450); RED BLOOD CELL COUNT(AUTO) 2.82 MIL/uL (4.5-6.0); WHITE BLOOD COUNT (AUTO) 10.8 K/uL (4.3-11.0)
[2021-07-10 07:30] LABS: CALCIUM, SERUM 8.4 mg/dL (8.5-10.1); MAGNESIUM 2.5 mg/dL (1.8-2.4); PHOSPHORUS 7.3 mg/dL (2.5-4.9); POTASSIUM 4.9 mmol/L (3.5-5.1)
[2021-07-10 07:47] LABS: CREATININE 12.1 mg/dL (0.6-1.3)
[2021-07-10 08:00] VITALS: BP 148/99
[2021-07-10] MEDS: LACTOBACILLUS RHAMNOSUS GG 1 EACH CAP.SPRINK PO SCH ×2 (08:55→17:45)
[2021-07-10] MEDS: CALCIUM CARBONATE 500 MG TAB.CHEW PO SCH ×3 (08:55→17:48)
[2021-07-10] MEDS: METOCLOPRAMIDE HCL 10 MG/10 ML UDC PO SCH ×2 (08:55→21:39)
[2021-07-10] MEDS: ASPIRIN 81 MG TAB.CHEW PO SCH (08:55)
[2021-07-10] MEDS: AMLODIPINE BESYLATE 5 MG TABLET PO SCH (08:56)
[2021-07-10] MEDS: NEPRO VAN 237 ML CAN PO SCH ×3 (08:58→17:45)
[2021-07-10] MEDS: MINERAL OIL/PETROLATUM,WHITE 120 GM JAR TP SCH ×2 (08:58→17:46)
--- NOTE | 2021-07-10 14:00 | NUR ---
MS RN NOTE PATIENT SEEN BY DR. CEBALLOS WITH NO NEW ORDER AT THIS TIME.
[2021-07-10] MEDS: CEFTRIAXONE 1 G in IV D5W 50 ML IV SCH (15:53)
[2021-07-10 16:00] VITALS: BP 133/73
--- NOTE | 2021-07-10 19:00 | NUR ---
MS RN OPENING NOTE PT AWAKE ON BED BUT WAKES UP TO CALL, A/O X3, ABLE TO VERBALIZE ALL NEEDS. PATIENT DENIES PAIN OR DISCOMFORT AT THIS TIME. WITH PICC LINE ON FERNANDA PATENT AND INTACT. WITH RIGHT CHEST PERMA CATH WITH DRESSING, DRY AND INTACT. SAFETY MEASURES IN PLACE, BED IN LOWEST LOCKED AND AT LOWEST POSITION, SIDE RAILS UP X2, CALL LIGHT AND TABLE WITHIN REACH. WILL ENDORSE FOR CONTINUITY OF CARE
--- NOTE | 2021-07-10 19:10 | NUR ---
MS/RN OPENING NOTE RECEIVED PATIENT RESTING IN BED. AWAKE, ALERT AND ORIENTED X 4. ABLE TO MAKE NEEDS KNOWN. DENIES PAIN AT THIS TIME. CONTINUES ON ROOM AIR WITH NO S/SX OF RESPIRATORY DISTRESS NOTED. IV ACCESS TO RIGHT UPPER ARM PICC LINE INTACT, PATENT AND SALINE LOCKED. RIGHT CHEST WALL PERMA CATH IN PLACE FOR HD. CONTINUES ON IV ABX. CALL LIGHT WITHIN REACH. ASPIRATION, FALL AND SAFETY PRECAUTIONS MAINTAINED. WILL CONTINUE TO MONITOR.
[2021-07-10 20:00] VITALS: BP 145/90
--- NOTE | 2021-07-11 06:10 | NUR ---
MS/RN CLOSING NOTE PATIENT CURRENTLY SLEEPING IN BED. ALERT AND ORIENTED X 4. ABLE TO MAKE NEEDS KNOWN. DENIES PAIN AT THIS TIME. CONTINUES ON ROOM AIR WITH NO S/SX OF RESPIRATORY DISTRESS NOTED. IV ACCESS TO RIGHT UPPER ARM PICC LINE INTACT, PATENT AND SALINE LOCKED. CONTINUES ON IV ABX. RIGHT CHEST WALL PERMA CATH IN PLACE FOR HD. DRESSING IS CLEAN, DRY AND INTACT. CALL LIGHT WITHIN REACH. ASPIRATION, FALL AND SAFETY PRECAUTIONS MAINTAINED. WILL ENDORSE PLAN OF CARE TO ONCOMING SHIFT.
[2021-07-11 07:52] LABS: BASOPHILS # (AUTO) 0.2 K/uL (0.0-0.2); BASOPHILS % (AUTO) 1.9 % (0.0-2.0); EOSINOPHILS % (AUTO) 6.3 % (0.0-6.0); HEMATOCRIT 25 % (39-51); HEMOGLOBIN 8.6 g/dL (13.5-17.5); LYMPHOCYTES # (AUTO) 1.6 K/uL (0.8-4.8); LYMPHOCYTES % (AUTO) 14.7 % (20.0-44.0); MEAN CORPUSCULAR HGB CONC 35 g/dl (31.0-36.0); MEAN CORPUSCULAR VOLUME 91 fL (80-96); MONOCYTES # (AUTO) 1.2 K/uL (0.1-1.30); MONOCYTES % (AUTO) 11.1 % (2.0-12.0); PLATELET COUNT (AUTO) 435 K/uL (150-450); RED BLOOD CELL COUNT(AUTO) 2.71 MIL/uL (4.5-6.0); WHITE BLOOD COUNT (AUTO) 10.5 K/uL (4.3-11.0)
[2021-07-11 08:00] VITALS: BP 145/96
[2021-07-11] MEDS: NEPRO VAN 237 ML CAN PO SCH ×3 (08:00→17:00)
[2021-07-11 08:16] LABS: CALCIUM, SERUM 8.2 mg/dL (8.5-10.1); MAGNESIUM 2.3 mg/dL (1.8-2.4); PHOSPHORUS 7.6 mg/dL (2.5-4.9); POTASSIUM 4.4 mmol/L (3.5-5.1)
[2021-07-11 08:18] LABS: CREATININE 14.5 mg/dL (0.6-1.3)
[2021-07-11] MEDS: CALCIUM CARBONATE 500 MG TAB.CHEW PO SCH ×3 (08:45→17:44)
[2021-07-11] MEDS: METOCLOPRAMIDE HCL 10 MG/10 ML UDC PO SCH ×2 (08:45→21:46)
[2021-07-11] MEDS: ASPIRIN 81 MG TAB.CHEW PO SCH (08:45)
[2021-07-11] MEDS: LACTOBACILLUS RHAMNOSUS GG 1 EACH CAP.SPRINK PO SCH ×2 (08:46→17:44)
[2021-07-11] MEDS: MINERAL OIL/PETROLATUM,WHITE 120 GM JAR TP SCH ×2 (08:47→17:47)
[2021-07-11] MEDS: AMLODIPINE BESYLATE 5 MG TABLET PO SCH (09:00)
--- NOTE | 2021-07-11 09:00 | NUR ---
m/s reconciling clerk: notes pt for hd tx today, held [facility]. pt aware.
--- NOTE | 2021-07-11 11:00 | NUR ---
m/s solutions architect: notes resting comfortable in bed. no distress noted. for hd tx today. awaiting for hd nurse.
[2021-07-11 12:06] LABS: *SPE ALPHA-1-GLOBULIN 0.4 g/dL (0.0-0.4); *SPE ALPHA-2-GLOBULIN 1.1 g/dL (0.4-1.0); *SPE BETA GLOBULIN 0.9 g/dL (0.7-1.3); *SPE M-SPIKE Not Observed g/dL (Not Observed)
--- NOTE | 2021-07-11 13:00 | NUR ---
m/s intermodal dispatcher: notes up in chair at this time. no distress noted. will continue to monitor.
[2021-07-11] MEDS: CEFTRIAXONE 1 G in IV D5W 50 ML IV SCH (14:29)
--- NOTE | 2021-07-11 15:50 | NUR ---
m/s technical systems architect: notes hd tx started by kenyatta (hd rn) at this time. pt resting comfortable in bed. no distress noted.
[2021-07-11 16:00] VITALS: BP 149/90
--- NOTE | 2021-07-11 17:00 | NUR ---
m/s ice cream chef: notes hd in progress. no distress noted. will continue to monitor.
--- NOTE | 2021-07-11 18:15 | NUR ---
m/s legal project manager: notes still having hd tx with hd nurse at bedside. needs attended. no apparent distress noted. will continue to monitor.
[2021-07-11 18:40] VITALS: BP 159/95
--- NOTE | 2021-07-11 18:40 | NUR ---
m/s press service reader: notes hd completed with 1600 uf, herrera. well. no distress noted. instructed to call for assistance. will continue to monitor.
--- NOTE | 2021-07-11 19:10 | NUR ---
m/s brim curler: notes report given to winter (tanya) for continuity of care.
--- NOTE | 2021-07-11 19:10 | NUR ---
MS/RN OPENING NOTE RECEIVED PATIENT RESTING IN BED. AWAKE, ALERT AND ORIENTED X 4. ABLE TO MAKE NEEDS KNOWN. DENIES PAIN AT THIS TIME. CONTINUES ON ROOM AIR WITH NO S/SX OF RESPIRATORY DISTRESS NOTED. IV ACCESS TO RIGHT UPPER ARM PICC LINE INTACT, PATENT AND SALINE LOCKED. RIGHT CHEST WALL HD PERMACATH IN PLACE. CALL LIGHT WITHIN REACH. ASPIRATION, FALL AND SAFETY PRECAUTIONS MAINTAINED. WILL CONTINUE TO MONITOR.
[2021-07-11 20:02] VITALS: BP 154/95
--- NOTE | 2021-07-12 06:10 | NUR ---
MS/RN CLOSING NOTE PATIENT CURRENTLY RESTING IN BED. AWAKE, ALERT AND ORIENTED X 4. ABLE TO MAKE NEEDS KNOWN. DENIES PAIN AT THIS TIME. CONTINUES ON ROOM AIR WITH NO S/SX OF RESPIRATORY DISTRESS NOTED. IV ACCESS TO RIGHT UPPER ARM PICC LINE INTACT, PATENT AND SALINE LOCKED. RIGHT CHEST WALL HD PERMACATH IN PLACE. CALL LIGHT WITHIN REACH. ASPIRATION, FALL AND SAFETY PRECAUTIONS MAINTAINED. WILL ENDORSE PLAN OF CARE TO ONCOMING SHIFT.
[2021-07-12 07:22] LABS: PROSTATE SPECIFIC ANTIGEN SCR 0.5 ng/mL (0.00-4.00)
[2021-07-12 08:00] VITALS: BP 148/92
[2021-07-12] MEDS: NEPRO VAN 237 ML CAN PO SCH ×3 (08:00→17:18)
[2021-07-12] MEDS: LACTOBACILLUS RHAMNOSUS GG 1 EACH CAP.SPRINK PO SCH ×2 (09:09→17:18)
[2021-07-12] MEDS: METOCLOPRAMIDE HCL 10 MG/10 ML UDC PO SCH ×2 (09:10→20:56)
[2021-07-12] MEDS: ASPIRIN 81 MG TAB.CHEW PO SCH (09:10)
[2021-07-12] MEDS: AMLODIPINE BESYLATE 5 MG TABLET PO SCH (09:10)
[2021-07-12] MEDS: CALCIUM CARBONATE 500 MG TAB.CHEW PO SCH ×3 (09:10→17:18)
[2021-07-12] MEDS: MINERAL OIL/PETROLATUM,WHITE 120 GM JAR TP SCH ×2 (09:13→17:18)
--- NOTE | 2021-07-12 10:43 | NUR ---
m/s pull over machine operator: plant assigner/oncologist f/u seen and examined by kirsty (barbie) at this time.
[2021-07-12] MEDS: CEFTRIAXONE 1 G in IV D5W 50 ML IV SCH (14:19)
--- NOTE | 2021-07-12 15:45 | NUR ---
m/s washing and screening plant supervisor: notes dialysis treatment has been arranged at [facility] care via chair time on tuesdays, , and saturdays at 1230 pm per case management. pt made aware. jadyn calvert) aware and pt already signed the homeless waiver form on June 24, 2021. left message to dr. anglin via secured text.
[2021-07-12 16:00] VITALS: BP 143/89
--- NOTE | 2021-07-12 18:09 | NUR ---
m/s csr technician: nephro f/u seen by dr. miller with lab orders. orders acknowledged.
--- NOTE | 2021-07-12 19:00 | NUR ---
m/s edge burnisher uppers: notes report given to morgan (tanya) for continuity of care.
[2021-07-12 19:40] VITALS: BP 156/88
--- NOTE | 2021-07-13 06:28 | NUR ---
slept thru the night voided X! 500 ml tea colored urine no c/o offered this 12 hours
[2021-07-13 08:00] VITALS: BP 152/102
[2021-07-13] MEDS: NEPRO VAN 237 ML CAN PO SCH ×2 (08:00→14:29)
--- NOTE | 2021-07-13 08:00 | NUR ---
RECEIVED PT. IN AM ALERT AND ORIENTED X3.NO COMPLAINTS OFFERED.VS STABLE.PICC LINE INTACT.
[2021-07-13] MEDS: MINERAL OIL/PETROLATUM,WHITE 120 GM JAR TP SCH (09:00)
[2021-07-13] MEDS: ASPIRIN 81 MG TAB.CHEW PO SCH (10:12)
[2021-07-13] MEDS: LACTOBACILLUS RHAMNOSUS GG 1 EACH CAP.SPRINK PO SCH (10:12)
[2021-07-13] MEDS: AMLODIPINE BESYLATE 5 MG TABLET PO SCH (10:13)
[2021-07-13] MEDS: CALCIUM CARBONATE 500 MG TAB.CHEW PO SCH ×2 (10:13→14:26)
[2021-07-13] MEDS: METOCLOPRAMIDE HCL 10 MG/10 ML UDC PO SCH (10:13)
--- NOTE | 2021-07-13 11:30 | NUR ---
Pam RAMIREZ NP HERE AND DC ORDER GIVEN.
[2021-07-13 11:43] LABS: BASOPHILS # (AUTO) 0.2 K/uL (0.0-0.2); BASOPHILS % (AUTO) 2.3 % (0.0-2.0); EOSINOPHILS % (AUTO) 8.9 % (0.0-6.0); HEMATOCRIT 24 % (39-51); HEMOGLOBIN 8.7 g/dL (13.5-17.5); LYMPHOCYTES # (AUTO) 1.3 K/uL (0.8-4.8); LYMPHOCYTES % (AUTO) 12.4 % (20.0-44.0); MEAN CORPUSCULAR HGB CONC 36 g/dl (31.0-36.0); MEAN CORPUSCULAR VOLUME 91 fL (80-96); MONOCYTES # (AUTO) 0.9 K/uL (0.1-1.30); MONOCYTES % (AUTO) 8.4 % (2.0-12.0); NEUTROPHILS # (AUTO) 6.9 K/uL (1.8-8.9); PLATELET COUNT (AUTO) 390 K/uL (150-450); RED BLOOD CELL COUNT(AUTO) 2.68 MIL/uL (4.5-6.0); WHITE BLOOD COUNT (AUTO) 10.1 K/uL (4.3-11.0)
[2021-07-13 12:06] LABS: ALBUMIN 2.8 g/dL (3.4-5.0); CALCIUM, SERUM 8.4 mg/dL (8.5-10.1); MAGNESIUM 2.2 mg/dL (1.8-2.4); PHOSPHORUS 5.8 mg/dL (2.5-4.9); POTASSIUM 4.7 mmol/L (3.5-5.1); TOTAL PROTEIN, SERUM 6.6 g/dL (6.4-8.2)
[2021-07-13 12:09] LABS: CREATININE 11.2 mg/dL (0.6-1.3)
--- NOTE | 2021-07-13 15:00 | NUR ---
MEDIA MARKETING SPECIALIST. HERE AND OFFERING NURSING HOME TO PT.PICC LINE DC'D.PAPERS SIGNED.AMB. TO LOBBY. GIVEN BUS PASS TO NURSING HOME BY MEDIA MARKETING SPECIALIST.
--- NOTE | 2021-07-13 15:52 | NUR ---
"D/C PLANNING: SW met with pt. bedside to discuss discharge planing. SW discussed options and pt. is agreeable to care home placement. SW provided tap card for bus transportation to [facility] [[address] [facility] [address]; [phone] intakes begin at 4:30PM. Pt. expressed understanding and is agreeable to plan. Nallely CHAPPELL arranged for pt.'s HD chair time on Tuesdays, and Saturdays at [facility] [[address] [facility] [address] [facility] [address], [place] [address]; [phone] (TEL)]. SW provided [employer] direction to [facility] with chair times and pt. thanked SW and is agreeable. Per pt.'s request, SW called [facility] and informed them that pt. does not have an ID. [facility] stated that will not be a problem. Noted SW relayed information to pt. SW provided pt. with clothing and pt. accepted. SW addressed the pt.'s questions. Pt. signed homeless waiver on 06/24/2021 and it is in the chart. [facility] provided pt. with homeless resources for shelters, mental health services, health clinics, food pantries, warm meals, shelters etc and pt. accepted them. [facility] discussed D/C planning with pt.'s nurse. Resources provided include: Year-round shelters: [facility] [address] [place] [address] ; [facility] [place] [address] [place] [address]; [facility] [id number] [facility] [address] Winter Shelters: [facility] [place] Provider: [facility] [place] Address: [address], [address] # of Beds: 47 Population Served: [facility] 6 | [facility] Alivia Lombardo [place] Provider: [facility] Address: [address] [facility], # of Beds: 66 Population Served: [facility] [place] Provider: [facility] Address: [address] [facility], # of Beds: 56 Population Served: [facility] [place] Provider: [facility] Address: [address] [facility], [address] # of Beds: 49 Population Served: [facility] 8 | [facility] Provider: [facility] Address: [address] [place], [address] # of Beds: 37 Population Served: [facility] Hygiene: [facility]: [address] [place] ; [facility] [address] [facility] ; [facility] [address] [facility] . Food Resources: [facility] [facility]- [address] [facility]; Meet Each Need with Dignity ([facility]) [address] [facility]; [facility] Food Pantry [address] [facility]; [facility] [address] [facility]. Mental Health resources provided: [facility] [address] [place], [place] [id number] ; [facility] [address] [facility] [address], [place], [place] [id number] ; Lissett Joseph [facility] [address] [address] [place], [place] [id number] ; [facility] [address] [place], [place] [id number] Healthcare Clinics: [facility] [address] [facility], [address] [place]. [place] ; [facility] [address] [facility] [address] [place] [address]; [facility] [address] [facility]. [place] [address] [phone] Counseling--Outpatient [facility] [address] [facility], [place] [address] (Specializes in in-depth psychotherapy for emotional distress: anxiety, depression, interpersonal conflicts, life transitions, childhood abuse) [facility] [address] [place], [place] [address] (Assist with solving problem marital difficulties, separation & divorce, aging parents, & grief, chronic & terminal illness) [facility] [address] [place] [address] (Deal with loss & grief, anxiety, marital difficulties) Homebound/Mental Health Services [address] [facility] [address] [place] [address] (Provide in-home mental services to people who are incapable of leaving their homes) Organization for Needs of the Elderly Senior Service/Resource Center [address] [facility] [place] [address] [facility] [address] [place], [place] [address] PSYCHIATRIC OUTPATIENT SERVICES [facility] Partial Hospitalization and Intensive Outpatient Program (Managed Care and [place] Only)[address] [facility] [phone] [facility] Partial Hospitalization and Outpatient [id number] [facility] [address] [place], [place] [phone] [facility] [place] Cnb[address] [facility] [address] [place], [place] [phone] [facility] Partial Hospitalization and Outpatient Gytzfcv20924 [place], [phone] Substance Abuse resources provided included: [facility] Substance Abuse Self-Helpline (SAS) ; CRI -HELP [address] [facility]. [place] [address] ; [facility] [address] [facility] [address] ; [facility] Rehabilitation Program [address] [facility]. [place] [phone] ; [facility] [address] [facility] [address] ; [facility] Treatment [facility] [place] [address] [facility] [address] ; [facility] [address] [facility] [phone] ; [facility] Substance Abuse Helpline(SAS)-[facility] ; [facility] Family Counseling ; [facility] [place]; [facility] [place]; Cri[facility]Help [place]; I-ADARP [facility] William Lundy; [facility] [place]; [facility] [place]; [facility] [place]; [facility], [facility]. [facility]; Alcoholics Anonymous -SFV; Re-Dnod-Lcaivpu ; Marijuana Anonymous -SFV; Narcotics Anonymous www.na.org;"
[2021-07-13 16:00] VITALS: BP 154/94
== END 2021-07-13 16:30 | disposition home or self-care (01) | DRG 720 ==
LOC: ER 11:13 → ICU 13:50 → EDBD 13:50 → TELE 06-24 18:26 → MED 06-27 10:31
PROVIDERS: ADMIT Internal Medicine; ATTEND Nurse Practitioner Acute Care
PROC: 5A1945Z Respiratory Ventilation, 24-96 Consecutive Hours (ICD-10-PCS; principal; 2021-06-20)
PROC: 0BH18EZ Insertion of Endotracheal Airway into Trachea, Via Natural or Artificial Opening Endoscopic (ICD-10-PCS; 2021-06-20)
PROC: 02HV33Z Insertion of Infusion Device into Superior Vena Cava, Percutaneous Approach (ICD-10-PCS; 2021-06-21)
PROC: B548ZZA Ultrasonography of Superior Vena Cava, Guidance (ICD-10-PCS; 2021-06-21)
PROC: 30233K1 Transfusion of Nonautologous Frozen Plasma into Peripheral Vein, Percutaneous Approach (ICD-10-PCS; 2021-06-22)
PROC: 30233M1 Transfusion of Nonautologous Plasma Cryoprecipitate into Peripheral Vein, Percutaneous Approach (ICD-10-PCS; 2021-06-22)
PROC: 5A1D70Z Performance of Urinary Filtration, Intermittent, Less than 6 Hours Per Day (ICD-10-PCS; 2021-06-22)
PROC: 05HM33Z Insertion of Infusion Device into Right Internal Jugular Vein, Percutaneous Approach (ICD-10-PCS; 2021-06-22)
PROC: B543ZZA Ultrasonography of Right Jugular Veins, Guidance (ICD-10-PCS; 2021-06-22)
PROC: 30233N1 Transfusion of Nonautologous Red Blood Cells into Peripheral Vein, Percutaneous Approach (ICD-10-PCS; 2021-07-05)
PROC: 0JHD3XZ Insertion of Tunneled Vascular Access Device into Right Upper Arm Subcutaneous Tissue and Fascia, Percutaneous Approach (ICD-10-PCS; 2021-07-08)
PROC: 05HM33Z Insertion of Infusion Device into Right Internal Jugular Vein, Percutaneous Approach (ICD-10-PCS; 2021-07-08)
PROC: B543ZZA Ultrasonography of Right Jugular Veins, Guidance (ICD-10-PCS; 2021-07-08)
DX: A41.9 Sepsis, unspecified organism (principal); D65 Disseminated intravascular coagulation [defibrination syndrome]; J96.01 Acute respiratory failure with hypoxia; K72.00 Acute and subacute hepatic failure without coma; J69.0 Pneumonitis due to inhalation of food and vomit; N17.0 Acute kidney failure with tubular necrosis; G93.40 Encephalopathy, unspecified; E87.2 Acidosis; D68.9 Coagulation defect, unspecified; E86.1 Hypovolemia; I21.4 Non-ST elevation (NSTEMI) myocardial infarction; T67.01XA Heatstroke and sunstroke, initial encounter; X58.XXXA Exposure to other specified factors, initial encounter; Y92.89 Other specified places as the place of occurrence of the external cause; Z20.822 Contact with and (suspected) exposure to COVID-19; I13.2 Hypertensive heart and chronic kidney disease with heart failure and with stage 5 chronic kidney disease, or end stage renal disease; E87.0 Hyperosmolality and hypernatremia; M62.82 Rhabdomyolysis; E87.5 Hyperkalemia; E87.6 Hypokalemia; F15.90 Other stimulant use, unspecified, uncomplicated; I50.9 Heart failure, unspecified; J98.11 Atelectasis; J90 Pleural effusion, not elsewhere classified; N18.6 End stage renal disease; N39.0 Urinary tract infection, site not specified; L97.519 Non-pressure chronic ulcer of other part of right foot with unspecified severity; L97.529 Non-pressure chronic ulcer of other part of left foot with unspecified severity; Z59.0 Homelessness
CPT/HCPCS: 31720; 36415; 36569; 36600; 70450-TC; 71045-TC; 76700-TC; 80048-TC; 80053-TC; 80061-TC; 80076-TC; 80202-TC; 81001; 82040-TC; 82140-TC; 82248-TC; 82550-TC; 82553; 82728-TC; 82784; 82803-TC; 82962-TC; 83540-TC; 83605-TC; 83735-TC; 84100-TC; 84132-TC; 84153-TC; 84154-TC; 84155; 84165; 84443-TC; 84478-TC; 84484-TC; 85025-TC; 85385-TC; 85396; 85610-TC; 85730-TC; 86022; 86225; 86235; 86334; 86431-TC; 86706; 86709; 86803; 86850-TC; 87040-TC; 87045-TC; 87070-TC; 87081-TC; 87086-TC; 87340; 87806; 90935-TC; 93307-TC; 94002-TC; 94003-TC; 94760-TC; 94762-TC; 94799-TC; 97116-TC; 97530-TC; 99082-TC; A4216; C1750; C1757; C1769; C1894; G0378; J0690; J0692; J0696; J0885; J1200; J1644; J1815; J2060; J2185; J2250; J2405; J2543; J2704; J3370; J3430; J3480; J3490; J7030; J7040; J7050; J7060; J7070; J7120; J8597; P9012; P9016; P9017; U0003

== ENCOUNTER 2021-09-30 13:08 | Emergency (ER) | payer MEDICAID, OTHER ==
[~2021-09-30] VITALS: Ht 167.6 cm; Wt 63.5 kg
--- NOTE | 2021-09-30 14:39 | NUR ---
CALLED AND SPOKE MAIKEL SEN [phone]. Addendum: 09/30/21 at 1443 by AVELINO CALLED [phone] AND SPOKE WITH MAIKEL TO CONTACT DR. SEN.
--- NOTE | 2021-09-30 14:49 | NUR ---
DR BERKOWITZ STATES DR. SEN DID NOT DINING ROOM HELPER. DR. SEN WILL CALL BACK
--- NOTE | 2021-09-30 15:50 | NUR ---
PT DIALYSIS CATHETER REMAIN INTACT. DR JAMA PUT IN DISCHARDER ORDERS.
[2021-09-30 16:10] VITALS: BP 152/118
== END 2021-09-30 16:11 | disposition home or self-care (01) ==
LOC: ER 13:10
DX: Z49.01 Encounter for fitting and adjustment of extracorporeal dialysis catheter (principal); Z60.2 Problems related to living alone